=== PATIENT | female | born 1980 | race Caucasian/White ===

== ENCOUNTER 2017-01-26 19:47 | Emergency (ER) | payer BC, SELFPAY | END 2017-01-26 20:47 | disposition home or self-care (01) | PROVIDERS: Emergency Provider Nurse Practitioner Family; Family Provider Emergency Medicine; Visit Provider Nurse Practitioner Family | DX: O26.893 Other specified pregnancy related conditions, third trimester (principal); H66.002 Acute suppurative otitis media without spontaneous rupture of ear drum, left ear; Z3A.37 37 weeks gestation of pregnancy; Z88.0 Allergy status to penicillin | CPT/HCPCS: 87804; 99201 ==

== ENCOUNTER → 2017-04-01 13:09 | Outpatient (CLI) | payer BC, SELFPAY ==
[2017-04-01 13:40] LABS: Basophils % 0.2 % (0.1-2.0); Eosinophils # 0.1 K/mm3 (0.0-0.4); Eosinophils % 1.4 % (0.1-12.0); Hematocrit 34.8 % (37.0-47.0); Lymphocytes # 2.4 K/mm3 (0.7-4.5); Lymphocytes % 33.4 K/mm3 (10-50); Mean Corpuscular HGB Conc 31.5 g/dL (31.8-35.4); Mean Corpuscular Hemoglobin 26.6 pg (27.0-31.2); Mean Corpuscular Volume 84.4 fl (81-99); Mean Platelet Volume 8.5 fl (7.4-10.4); Monocytes # 0.3 K/mm3 (0.1-1.0); Monocytes % 4.1 % (1.7-9.3); Neutrophils # 4.3 K/mm3 (1.8-7.8); Neutrophils % 60.9 % (37.0-80.0); Platelet Count 323 K/mm3 (142-424); Red Blood Count 4.12 M/mm3 (4.20-5.40); White Blood Count 7.1 K/mm3 (4.8-10.8)
[2017-04-01 13:44] LABS: Alanine Aminotransferase 37 U/L (12-78); Albumin Level 3.4 gm/dL (3.4-5.0); Albumin/Globulin Ratio 0.8 (1.1-1.8); Alkaline Phosphatase 80 U/L (46-116); Anion Gap 10.8 mEq/L (5-15); Aspartate Amino Transferase 24 U/L (15-37); Bilirubin,Total 0.4 mg/dL (0.2-1.0); Blood Urea Nitrogen 12 mg/dL (7-18); Calcium 8.3 mg/dL (8.5-10.1); Carbon Dioxide 26 mmol/L (21.0-32.0); Chloride 105 mmol/L (98-107); Cholesterol 229 mg/dL (140-200); Creatinine,Serum 0.89 mg/dL (0.55-1.02); Estimated Glomerular Filt Rate 73 ml/min (>60); GFR (African American) 88 ML/MIN (>60); Globulin 4.4 gm/dl (1.3-3.2); Glucose 87 mg/dL (74-106); HDL Cholesterol 57 mg/dL (29-89); LDL Cholesterol 158 mg/dL (0-130); Potassium 3.8 mmoL/L (3.5-5.1); Sodium 138 mmol/L (136-145); Thyroid Stimulating Hormone 1.84 uIU/ml (0.358-3.740); Total Protein,Serum 7.8 gm/dL (6.4-8.2); Triglycerides 70 mg/dL (30-200); VLDL Cholesterol 14 mg/dL (0-40)
== END ==
PROVIDERS: Visit Provider Physician Assistant
DX: D64.9 Anemia, unspecified (principal); I10 Essential (primary) hypertension; E66.9 Obesity, unspecified
CPT/HCPCS: 36415; 80053; 80061; 84443; 85025

== ENCOUNTER → 2017-08-31 14:37 | Outpatient (CLI) | payer BC, SELFPAY ==
[2017-08-31 14:54] LABS: Basophils % 0.3 % (0.1-2.0); Eosinophils # 0.1 K/mm3 (0.0-0.4); Eosinophils % 2.5 % (0.1-12.0); Hematocrit 35.7 % (37.0-47.0); Hemoglobin 11.3 g/dL (12.2-16.2); Lymphocytes % 36.7 K/mm3 (10-50); Mean Corpuscular HGB Conc 31.7 g/dL (31.8-35.4); Mean Corpuscular Hemoglobin 25.2 pg (27.0-31.2); Mean Corpuscular Volume 79.5 fl (81-99); Mean Platelet Volume 8.6 fl (7.4-10.4); Monocytes # 0.2 K/mm3 (0.1-1.0); Monocytes % 3.7 % (1.7-9.3); Neutrophils # 3.1 K/mm3 (1.8-7.8); Neutrophils % 56.7 % (37.0-80.0); Platelet Count 334 K/mm3 (142-424); Red Blood Count 4.49 M/mm3 (4.20-5.40); Red Cell Distribution Width 14.1 % (11.5-17.5); White Blood Count 5.5 K/mm3 (4.8-10.8)
[2017-08-31 16:26] LABS: Alanine Aminotransferase 25 U/L (12-78); Albumin Level 3.6 gm/dL (3.4-5.0); Alkaline Phosphatase 61 U/L (46-116); Anion Gap 13.5 mEq/L (5-15); Aspartate Amino Transferase 14 U/L (15-37); Bilirubin,Total 0.3 mg/dL (0.2-1.0); Blood Urea Nitrogen 9 mg/dL (7-18); Calcium 8.5 mg/dL (8.5-10.1); Carbon Dioxide 23 mmol/L (21.0-32.0); Chloride 109 mmol/L (98-107); Chol/HDL Ratio 4.5 (1-3.5); Cholesterol 170 mg/dL (140-200); Creatinine,Serum 0.78 mg/dL (0.55-1.02); Estimated Glomerular Filt Rate 84 ml/min (>60); GFR (African American) 102 ML/MIN (>60); Globulin 3.5 gm/dl (1.3-3.2); Glucose 85 mg/dL (74-106); HDL Cholesterol 38 mg/dL (29-89); LDL Cholesterol 122 mg/dL (0-130); Potassium 4.5 mmoL/L (3.5-5.1); Sodium 141 mmol/L (136-145); T4 (Thyroxine) 6.6 ug/dl (4.7-13.3); Total Protein,Serum 7.1 gm/dL (6.4-8.2); Triglycerides 50 mg/dL (30-200); VLDL Cholesterol 10 mg/dL (0-40)
[2017-09-03 06:35] LABS: Vitamin D 25 Hydroxy 17.4 ng/mL (30.0-100.0)
== END ==
PROVIDERS: Visit Provider Nurse Practitioner Family
DX: R53.83 Other fatigue (principal)
CPT/HCPCS: 36415; 80053; 80061; 82652; 84436; 84443; 85025

== ENCOUNTER → 2017-09-06 17:49 | Outpatient (CLI) | payer BC, SELFPAY ==
[2017-09-06 20:13] LABS: Ferritin 5 ng/mL (8-388)
[2017-09-08 08:33] LABS: Iron 29 ug/dL (27-159); UIBC 379 ug/dL (131-425)
[2017-09-08 17:12] LABS: Iron Saturation 7 % (15-55)
== END ==
PROVIDERS: Visit Provider Nurse Practitioner Family
DX: D64.9 Anemia, unspecified (principal)
CPT/HCPCS: 36415; 82728; 83540; 83550

== ENCOUNTER → 2017-10-08 16:35 | Outpatient (CLI) | payer BC, SELFPAY ==
[2017-10-08 17:12] LABS: Occult Blood,Stool Positive (Negative)
== END ==
PROVIDERS: PCP Nurse Practitioner Family; Visit Provider Nurse Practitioner Family
DX: R79.0 Abnormal level of blood mineral (principal)
CPT/HCPCS: 82272; G0328

== ENCOUNTER → 2017-10-25 12:37 | Outpatient (POV) | payer BC, SELFPAY | PROVIDERS: Family Provider Emergency Medicine; PCP Nurse Practitioner Family; Visit Provider Nurse Practitioner Acute Care | DX: Z00.00 Encounter for general adult medical examination without abnormal findings (principal) ==

== ENCOUNTER 2019-05-28 00:28 | Emergency (ER) | payer BC, SELFPAY ==
[2019-05-28 00:30] VITALS: BP 143/87; PULSE 69; RESP 16; TEMP 36.7; O2SAT 97; BMI 40.2
--- NOTE | 2019-05-28 00:54 | XR_ITS ---
PROCEDURE: XR CHEST 2V Patient Age:38Y CLINICAL HISTORY: SOB on exertion past few days. Nonsmoker. COMPARISON: CXR CHEST(2 VIEWS-NOT PORTABLE) from 10/01/2013 FINDINGS: The lungs are well expanded and clear with nothing definitely acute.. PA film stable. Unremarkable. Lateral film there may be some mild atelectasis and slight crowding markings towards the posterior sulcus region. No convincing infiltrate. Cardiomediastinal silhouette and pulmonary vascularity are within normal limits. No pleural effusion. No bony abnormalities. Chest wall intact IMPRESSION: Stable chest with nothing definitely acute Dictated by: Phil Kaufman MD 05/28/2019 12:43 Electronically signed by Phil Kaufman MD in [facility] 05/28/2019 12:43
--- NOTE | 2019-05-28 00:54 | ECG_ITS ---
APPROVED REPORT Exam: Resting ECG HR:75 bpm ECG Measurements Heart Rate 75 AXES MD 124 P 0 QRSd 78 QRS 15 QT 408 T 7 QTc 455 <Conclusion> Normal sinus rhythm Normal ECG Electronically signed by : Fabio Asif, 05/29/2019 07:04:20
[2019-05-28 00:55] LABS: POC Glucose,Bedside 100 (70-110)
[2019-05-28 01:14] LABS: Basophils # 0.1 K/mm3 (0-0.2); Basophils % 0.8 % (0.1-2.0); Eosinophils # 0.2 K/mm3 (0.0-0.4); Eosinophils % 2.9 % (0.1-12.0); Hematocrit 40.1 % (37.0-47.0); Hemoglobin 12.8 g/dL (12.2-16.2); Lymphocytes # 2.8 K/mm3 (0.7-4.5); Mean Corpuscular HGB Conc 31.9 g/dL (31.8-35.4); Mean Corpuscular Hemoglobin 29.9 pg (27.0-31.2); Mean Corpuscular Volume 93.9 fl (81-99); Mean Platelet Volume 8.4 fl (7.4-10.4); Monocytes # 0.4 K/mm3 (0.1-1.0); Monocytes % 5.5 % (1.7-9.3); Neutrophils # 4.3 K/mm3 (1.8-7.8); Neutrophils % 54.8 % (37.0-80.0); Platelet Count 287 K/mm3 (142-424); Red Blood Count 4.27 M/mm3 (4.20-5.40); Red Cell Distribution Width 13.1 % (11.5-17.5); White Blood Count 7.9 K/mm3 (4.8-10.8)
[2019-05-28 01:20] LABS: Anion Gap 9.9 mEq/L (5-15); Blood Urea Nitrogen 20 mg/dl (7-17); Calcium 9.3 mg/dl (8.4-10.2); Carbon Dioxide 28 mmol/L (22.0-30.0); Chloride 103 mmol/L (98-107); Creatinine Clearance Estimated 153 mL/min (50-200); Estimated Glomerular Filt Rate 81 ml/min (>60); GFR (African American) 98 ML/MIN (>60); Glucose 92 mg/dl (74-100); Potassium 3.9 mmoL/L (3.5-5.1); Sodium 137 mmol/L (136-145)
--- NOTE | 2019-05-28 01:27 | CT_ITS ---
PROCEDURE: CT HEAD/BRAIN WO CON Patient Age:38Y CLINICAL INDICATION: tingling in head and hands Headache tingling all extremities dizziness occasional tunnel vision started yesterday. Nonsmoker. Is COMPARISON: HDWO CT HEAD W/O CONTRAST from 11/01/2013 CT HEAD/BRAIN WO CON from 11/08/2018 TECHNIQUE: No IV contrast. Axial images were obtained. All CT scans at the facility use one or more dose reduction, viz: automated exposure control, ma/kV adjustment per patient size (including targeted exams where dose is matched to indication, i.e. head), or iterative reconstruction technique. FINDINGS: No acute intracranial findings. No significant change since previous head CT studies No intracranial hemorrhage. No hydrocephalus.The ventricles and basal cisterns appear clear and satisfactory. No mass or midline shift nor mass effect. No subdural or extra-axial fluid collection is evident. Posterior fossa unremarkable. Skull intact- calvarium unremarkable appearance. Nomastoid effusions. Mastoid air cells are well developed and clear. Middle ear clear. IAC's symmetric. Nosinus air-fluid level. Visualized portions of the paranasal sinuses clear and orbits unremarkable.. IMPRESSION: No acute intracranial findings Stable CT head Dictated by: Phil Kaufman MD 05/28/2019 11:51 Electronically signed by Phil Kaufman MD in [facility] 05/28/2019 11:51
[2019-05-28 01:30] VITALS: BP 140/77; PULSE 73; RESP 16; O2SAT 98
[2019-05-28 01:32] LABS: Troponin I < 0.01 ng/ml (0.00-0.034)
[2019-05-28 02:30] VITALS: BP 137/81; PULSE 76; RESP 16; O2SAT 97
--- NOTE | 2019-05-28 02:54 | HMH.EDWEAK ---
ED Disposition Clinical Impression: Migraine variant Disposition: Home, Self-Care Condition on Discharge: Good Instructions: DI for Migraine Additional Instructions: see pcp for follow up Referrals: Mateo Pace MD [Primary Care Provider] - - Critical Care Critical Care Time: No Attestation: On 05/28/19, the high probability of a clinically significant, sudden or life threatening deterioration of the following system(s) required my full and direct attention, intervention and personal management. The time I documented below is in addition to time spent performing reported procedures but includes the following listed in this critical care notation. Medical Decision Making - Medical Records Medical records reviewed: Yes: I reviewed the patient's medical records. - Parveen Inquiry Pt receiving controlled substance: No Vital Signs: 05/28/19 00:30 05/28/19 01:30 Temperature 98.0 F Temperature Source Oral Pulse Rate [Left Radial] 69 73 Respiratory Rate 16 16 Blood Pressure [Right Arm] 143/87 H 140/77 Blood Pressure Mean [Right Arm] 105 98 Blood Pressure Source [Right Arm] Automatic Cuff Blood Pressure Position [Right Arm] Sitting 02 Sat by Pulse Oximetry 97 98 Oxygen Delivery Method Room Air Room Air - Lab Data Lab results reviewed: Yes: I reviewed the patient's lab results. Lab Results 05/28/19 00:37: POC Glucose 100 05/28/19 01:04: WBC 7.9, RBC 4.27, Hgb 12.8, Hct 40.1, MCV 93.9, MCH 29.9, MCHC 31.9, RDW 13.1, Plt Count 287, MPV 8.4, Neut % (Auto) 54.8, Lymph % (Auto) 36.0, [place] % (Auto) 5.5, Eos % (Auto) 2.9, Baso % (Auto) 0.8, Neut # (Auto) 4.3, Lymph # (Auto) 2.8, [place] # (Auto) 0.4, Eos # (Auto) 0.2, Baso # (Auto) 0.1 05/28/19 01:04: Sodium 137, Potassium 3.9, Chloride 103, Carbon Dioxide 28, Anion Gap 9.9, BUN 20 H, Creatinine 0.80, Estimated Creat Clear 153, Estimated GFR 81, Est GFR ( Amer) 98, Glucose 92, Calcium 9.3, Troponin I < 0.01 Result diagrams: 05/28/19 01:04 05/28/19 01:04 Orders (Tests/Meds): ED MEDICATIONS Generic Name Dose Route Start Last Admin Trade Name Freq PRN Reason Stop Dose Admin Sodium Chloride 1,000 mls @ 999 mls/hr 05/28/19 01:15 05/28/19 01:17 Sod Chlor 0.9% 1000ml Bag IV 05/28/19 02:15 999 mls/hr .Q1H1M OMAR Administration Discontinued Medications Generic Name Dose Route Start Last Admin Trade Name Freq PRN Reason Stop Dose Admin Ketorolac Tromethamine 30 mg 05/28/19 01:15 05/28/19 01:17 Toradol 30mg/Ml Vial IV 05/28/19 01:16 30 mg ONCE ONE Administration Ondansetron HCl 4 mg 05/28/19 01:15 05/28/19 01:17 Zofran 4mg/2ml Vial IV 05/28/19 01:16 4 mg ONCE ONE Administration ORDERS Category Date Time Status CT head/brain wo con Stat Cat Scan 05/28/19 01:27 Taken XR chest 2V Stat Exams 05/28/19 00:54 Taken Troponin I Q3H Lab 05/28/19 04:00 Ordered Troponin I Q3H Lab 05/28/19 07:00 Ordered Urinalysis and Microscopic Stat Lab 05/28/19 00:54 Ordered - Radiology Data #1 Image(s): Chest Image Reviewed: Yes I reviewed the patient's radiology image Preliminary Findings: Normal/NAD - CT Data CT Scan: Head Time Received: 03:[address] Reviewed: Yes: I have viewed the radiologist's interpretation Preliminary Findings: Normal/NAD - ECG Data Tracing #1 Normal Sinus Rhythm: Yes Ischemic changes: non-specific ST-T wave changes - KELLEY Score for Non-Stemi Age of Patient: 30-39 years old Heart Rate: 50-69 bpm Systolic Blood Pressure: 140-159 mmHg Serum Creatinine: 0.80-1.19 mg/dl CHF Killip Class: I-No CHF Other Risk Factors: None Non-Stemi Risk Score: 42 Weakness HPI - General Chief complaint: Weakness Stated complaint: Pressure forehead;arm and tingling in same Time Seen by Provider: 05/28/19 00:45 Mode of Arrival: Ambulatory Source of Information: Patient, Medical Record Limitations: No Limitations Description of Symptoms (Recalled from ER Triage Doc. by RN): pt c/
[2019-05-28 03:03] VITALS: BP 142/81; PULSE 82; RESP 16; TEMP 36.6; O2SAT 98
== END 2019-05-28 03:06 | disposition home or self-care (01) ==
PROVIDERS: Emergency Provider Emergency Medicine; PCP Family Medicine
DX: G43.809 Other migraine, not intractable, without status migrainosus (principal)
CPT/HCPCS: 70450; 71046; 80048; 82962; 84484; 85025; 93005; 96365; 96375; 99283; 99284; J2405

== ENCOUNTER 2019-09-10 17:24 | Emergency (ER) | payer BC, SELFPAY ==
[2019-09-10 17:39] VITALS: BP 163/86; PULSE 98; RESP 18; TEMP 36.7; O2SAT 100; BMI 41.8
--- NOTE | 2019-09-10 17:46 | ECG_ITS ---
APPROVED REPORT Exam: Resting ECG HR:94 bpm ECG Measurements Heart Rate 94 AXES AL 172 P 61 QRSd 74 QRS 38 QT 380 T 14 QTc 475 <Conclusion> Normal sinus rhythm Possible Left atrial enlargement NDST-T Changes Abnormal ECG Electronically signed by : Saravanan Cardozo, 09/11/2019 09:13:42
--- NOTE | 2019-09-10 17:46 | XR_ITS ---
PROCEDURE: XR CHEST 2V Patient Age:39Y CLINICAL HISTORY: Rapid Heart Rate dyspnea. Short of breath. Possible inside the attack. Nonsmoker. COMPARISON: CXR CHEST(2 VIEWS-NOT PORTABLE) from 10/01/2013 XR CHEST 2V from 05/28/2019 FINDINGS: PA and lateral chest performed today and compared to most recent CXR May 2019 The cardiomediastinal silhouette and pulmonary vascularity are within normal limits. The lungs are clear without infiltrates, suspicious nodules, or pleural effusions. No acute bony abnormalities. IMPRESSION: Stable chest. Nothing definitely acute. Dictated by: Phil Kaufman MD 09/10/2019 22:14 Electronically signed by Phil Kaufman MD in [facility] 09/10/2019 22:14
--- NOTE | 2019-09-10 17:57 | HMH.EDGENADL ---
ED Disposition Clinical Impression: Chest pain, atypical Disposition: Home, Self-Care Condition on Discharge: Good Instructions: DI for Atypical Chest Pain Referrals: Katalina Pena APRN [Primary Care Provider] - Time of Disposition: 20:20 - Critical Care Critical Care Time: No Attestation: On 09/10/19, the high probability of a clinically significant, sudden or life threatening deterioration of the following system(s) required my full and direct attention, intervention and personal management. The time I documented below is in addition to time spent performing reported procedures but includes the following listed in this critical care notation. Medical Decision Making - Medical Records Medical records reviewed: Yes: I reviewed the patient's medical records. - Parveen Inquiry Pt receiving controlled substance: No Vital Signs: 09/10/19 17:39 09/10/19 18:10 Temperature 98.0 F Temperature Source Oral Pulse Rate [Right Radial] 98 H 89 Respiratory Rate 18 Blood Pressure [Right Arm] 163/86 H 130/74 Blood Pressure Mean [Right Arm] 111 92 Blood Pressure Source [Right Arm] Automatic Cuff Automatic Cuff Blood Pressure Position [Right Arm] Sitting Sitting 02 Sat by Pulse Oximetry 100 100 Oxygen Delivery Method Room Air Room Air - Lab Data Lab Results 09/10/19 17:50: WBC 7.6, RBC 4.30, Hgb 13.7, Hct 39.5, MCV 91.9, MCH 31.8 H, MCHC 34.7, RDW 12.7, Plt Count 225, MPV 8.6, Neut % (Auto) 72.8, Lymph % (Auto) 22.3, [place] % (Auto) 3.2, Eos % (Auto) 1.3, Baso % (Auto) 0.5, Neut # (Auto) 5.6, Lymph # (Auto) 1.7, [place] # (Auto) 0.2, Eos # (Auto) 0.1, Baso # (Auto) 0.0 09/10/19 17:50: Sodium 137, Potassium 4.1, Chloride 103, Carbon Dioxide 25, Anion Gap 13.1, BUN 11, Creatinine 0.90, Estimated Creat Clear 68, Estimated GFR 70, Est GFR ( Amer) 85, Glucose 117 H, Calcium 9.1, Troponin I < 0.01 09/10/19 17:50: Free T4 1.50 09/10/19 17:50: TSH 0.29 L Result diagrams: 09/10/19 17:50 09/10/19 17:50 Orders (Tests/Meds): ORDERS Category Date Time Status Chest XR 2 view (NOT portable) [XR chest 2V] Stat Exams 09/10/19 17:46 Taken Troponin I Q3H Lab 09/10/19 19:53 Received Troponin I Q3H Lab 09/11/19 00:00 Ordered - ECG Data Tracing #1 Sinus rhythm with ventricular rate of 94 bpm. QRS 74, QTc 475. Possible left atrial enlargement. No ischemia or arrhythmia. Medical Decision Narrative: In summary this is a 39-year-old female with history of thyroid disorder and anxiety presenting to the emergency department with palpitations and chest pressure. She is conversational on arrival. Vital signs are stable. Plan to obtain CBC, CMP, chest x-ray, EKG, troponin profile, thyroid studies. Patient has had a hysterectomy, will not obtain test. EKG shows sinus rhythm at 94 bpm. No evidence of ischemia or arrhythmia. Laboratory results are generally unremarkable. Troponin is not elevated. Delta troponin shows no change. On reassessment patient says that she is feeling somewhat better. Has not had new or evolving chest pain while in the emergency department. I counseled her that we have not found one reason for her chest pain tonight. It is atypical. Could be due to anxiety. It is important that she follow-up with her primary care physician in 1 to 2 days for symptom recheck. Given return precautions. Stable for discharge. General Adult HPI - General Chief complaint: PAIN Stated complaint: panic attack Time Seen by Provider: 09/10/19 17:47 Mode of Arrival: Ambulatory Limitations: No Limitations Description of Symptoms (Recalled from ER Triage Doc. by RN): Pt reports that she was in the kitchen cooking noticed on her smart watch that her heart rate was 130. Pt reports she keeps an eye on her heart rate on her watch. Pt states she began having burning pain in chest and burning in her head. - History of Present Illness HPI narrative: 39-year-old female presenting to the emergency
[2019-09-10 18:01] LABS: Basophils % 0.5 % (0.1-2.0); Eosinophils # 0.1 K/mm3 (0.0-0.4); Eosinophils % 1.3 % (0.1-12.0); Hematocrit 39.5 % (37.0-47.0); Hemoglobin 13.7 g/dL (12.2-16.2); Lymphocytes # 1.7 K/mm3 (0.7-4.5); Lymphocytes % 22.3 % (10-50); Mean Corpuscular HGB Conc 34.7 g/dL (31.8-35.4); Mean Corpuscular Hemoglobin 31.8 pg (27.0-31.2); Mean Corpuscular Volume 91.9 fl (81-99); Mean Platelet Volume 8.6 fl (7.4-10.4); Monocytes # 0.2 K/mm3 (0.1-1.0); Monocytes % 3.2 % (1.7-9.3); Neutrophils # 5.6 K/mm3 (1.8-7.8); Neutrophils % 72.8 % (37.0-80.0); Platelet Count 225 K/mm3 (142-424); Red Cell Distribution Width 12.7 % (11.5-17.5); White Blood Count 7.6 K/mm3 (4.8-10.8)
--- NOTE | 2019-09-10 18:04 | PC.NURSE ---
pt to xray
[2019-09-10 18:09] LABS: Anion Gap 13.1 mEq/L (5-15); Blood Urea Nitrogen 11 mg/dl (7-17); Calcium 9.1 mg/dl (8.4-10.2); Carbon Dioxide 25 mmol/L (22.0-30.0); Chloride 103 mmol/L (98-107); Creatinine Clearance Estimated 68 mL/min (50-200); Estimated Glomerular Filt Rate 70 ml/min (>60); GFR (African American) 85 ML/MIN (>60); Glucose 117 mg/dl (74-100); Potassium 4.1 mmoL/L (3.5-5.1); Sodium 137 mmol/L (136-145)
[2019-09-10 18:10] VITALS: BP 130/74; PULSE 89; O2SAT 100
[2019-09-10 18:23] LABS: Troponin I < 0.01 ng/ml (0.00-0.034)
[2019-09-10 18:50] LABS: Thyroid Stimulating Hormone 0.29 uIU/mL (0.465-4.68)
[2019-09-10 20:31] LABS: Troponin I < 0.01 ng/ml (0.00-0.034)
[2019-09-10 20:43] VITALS: BP 119/63; PULSE 79; RESP 18; TEMP 36.7; O2SAT 100
[2019-09-10 20:48] VITALS: BP 138/89; PULSE 85; RESP 16; TEMP 37
== END 2019-09-10 20:49 | disposition home or self-care (01) ==
PROVIDERS: Emergency Provider Emergency Medicine; PCP Nurse Practitioner Family
DX: F41.0 Panic disorder [episodic paroxysmal anxiety] (principal); R07.89 Other chest pain; E03.9 Hypothyroidism, unspecified; D64.9 Anemia, unspecified; Z79.899 Other long term (current) drug therapy; Z87.891 Personal history of nicotine dependence; Z90.49 Acquired absence of other specified parts of digestive tract; Z90.79 Acquired absence of other genital organ(s)
CPT/HCPCS: 36415; 71046; 80048; 84439; 84443; 84484; 85025; 93005; 93041; 96374; 99283

== ENCOUNTER 2019-10-02 08:34 | Emergency (ER) | payer BC, SELFPAY ==
[2019-10-02 08:34] VITALS: BP 158/79; PULSE 84; RESP 22; TEMP 36.4; O2SAT 100; BMI 40.2
--- NOTE | 2019-10-02 08:39 | ECG_ITS ---
APPROVED REPORT Exam: Resting ECG HR:84 bpm ECG Measurements Heart Rate 84 AXES FL 128 P -14 QRSd 78 QRS 33 QT 394 T 5 QTc 465 <Conclusion> Normal sinus rhythm Nonspecific ST-T wave abnormalities Prolonged QT Abnormal ECG Electronically signed by : Saravanan Cardozo, 10/02/2019 18:40:12
--- NOTE | 2019-10-02 08:44 | XR_ITS ---
PROCEDURE: XR CHEST 2V CLINICAL HISTORY: PALPITATIONS Heart palpitations, left arm weakness COMPARISON: CR CXR CHEST(2 VIEWS-NOT PORTABLE) from 10/01/2013 CR XR CHEST 2V from 05/28/2019 CR XR CHEST 2V from 09/10/2019 FINDINGS: The cardiomediastinal silhouette and pulmonary vascularity are within normal limits. The lungs are clear without infiltrates, suspicious nodules, or pleural effusions. No acute bony abnormalities. IMPRESSION: No acute findings. Dictated by: Jb Saul MD 10/02/2019 09:17 Jb Saul MD in [facility] 10/02/2019 09:17
[2019-10-02 09:01] LABS: Basophils % 0.4 % (0.1-2.0); Eosinophils # 0.2 K/mm3 (0.0-0.4); Eosinophils % 2.3 % (0.1-12.0); Hematocrit 40.2 % (37.0-47.0); Hemoglobin 13.7 g/dL (12.2-16.2); Lymphocytes % 34.5 % (10-50); Mean Corpuscular Hemoglobin 31.4 pg (27.0-31.2); Mean Corpuscular Volume 92.2 fl (81-99); Mean Platelet Volume 8.7 fl (7.4-10.4); Monocytes # 0.5 K/mm3 (0.1-1.0); Monocytes % 5.3 % (1.7-9.3); Neutrophils % 57.4 % (37.0-80.0); Platelet Count 249 K/mm3 (142-424); Red Blood Count 4.36 M/mm3 (4.20-5.40); Red Cell Distribution Width 12.6 % (11.5-17.5); White Blood Count 8.7 K/mm3 (4.8-10.8)
[2019-10-02 09:04] VITALS: BP 126/76; PULSE 73; RESP 18; O2SAT 100
[2019-10-02 09:07] LABS: Chloride 105 mmol/L (98-107)
[2019-10-02 09:08] LABS: Potassium 3.9 mmoL/L (3.5-5.1); Sodium 140 mmol/L (136-145)
[2019-10-02 09:10] LABS: Alanine Aminotransferase 26 U/L (12-78); Albumin Level 4.4 g/dl (3.5-5.0); Albumin/Globulin Ratio 1.3 (1.1-1.8); Alkaline Phosphatase 54 U/L (38-126); Anion Gap 12.9 mEq/L (5-15); Aspartate Amino Transferase 28 U/L (14-36); Bilirubin,Total 0.2 mg/dl (0.2-1.3); Blood Urea Nitrogen 16 mg/dl (7-17); Carbon Dioxide 26 mmol/L (22.0-30.0); Creatinine Clearance Estimated 173 mL/min (50-200); Estimated Glomerular Filt Rate 94 ml/min (>60); GFR (African American) 114 ML/MIN (>60); Globulin 3.5 g/dL (1.3-3.2); Total Protein,Serum 7.9 g/dl (6.3-8.2)
[2019-10-02 09:11] LABS: Calcium 8.9 mg/dl (8.4-10.2); Glucose 87 mg/dl (74-100)
--- NOTE | 2019-10-02 09:12 | HMH.EDGENADL ---
ED Disposition Clinical Impression: Palpitations, Hyperthyroidism, Hormone disturbance Disposition: Home, Self-Care Condition on Discharge: Good Instructions: DI for Hyperthyroidism, DI for Palpitations Referrals: Katalina Pena APRN [Primary Care Provider] - - Critical Care Critical Care Time: No Attestation: On 10/02/19, the high probability of a clinically significant, sudden or life threatening deterioration of the following system(s) required my full and direct attention, intervention and personal management. The time I documented below is in addition to time spent performing reported procedures but includes the following listed in this critical care notation. Medical Decision Making - Medical Records Medical records reviewed: Yes: I reviewed the patient's medical records. - Parveen Inquiry Pt receiving controlled substance: No Vital Signs: 10/02/19 08:34 10/02/19 09:04 Temperature 97.6 F Temperature Source Oral Pulse Rate [Right] 84 73 Respiratory Rate 22 18 Blood Pressure [Right Arm] 158/79 H 126/76 Blood Pressure Mean [Right Arm] 105 92 Blood Pressure Source [Right Arm] Automatic Cuff Blood Pressure Position [Right Arm] Sitting 02 Sat by Pulse Oximetry 100 100 Oxygen Delivery Method Room Air - Lab Data Lab Results 10/02/19 08:50: WBC 8.7, RBC 4.36, Hgb 13.7, Hct 40.2, MCV 92.2, MCH 31.4 H, MCHC 34.0, RDW 12.6, Plt Count 249, MPV 8.7, Neut % (Auto) 57.4, Lymph % (Auto) 34.5, [place] % (Auto) 5.3, Eos % (Auto) 2.3, Baso % (Auto) 0.4, Neut # (Auto) 5.0, Lymph # (Auto) 3.0, [place] # (Auto) 0.5, Eos # (Auto) 0.2, Baso # (Auto) 0.0 10/02/19 08:50: Sodium 140, Potassium 3.9, Chloride 105, Carbon Dioxide 26, Anion Gap 12.9, BUN 16, Creatinine 0.70, Estimated Creat Clear 173, Estimated GFR 94, Est GFR ( Amer) 114, Glucose 87, Calcium 8.9, Total Bilirubin 0.2, AST 28, ALT 26, Alkaline Phosphatase 54, Troponin I < 0.01, Total Protein 7.9, Albumin 4.4, Globulin 3.5 H, Albumin/Globulin Ratio 1.3, TSH 0.14 L, Thyroxine (T4) 11.8 H Result diagrams: 10/02/19 08:50 10/02/19 08:50 Orders (Tests/Meds): ORDERS Category Date Time Status Troponin I Q3H Lab 10/02/19 11:45 Ordered Troponin I Q3H Lab 10/02/19 14:45 Ordered ECG Request by /Pedro Luis Stat Y 10/02/19 08:44 Ordered - ECG Data Tracing #1 Sinus rhythm with ventricular rate of 84 bpm. QRS 78, QTc 465. - KELLEY Score for Non-Stemi Age of Patient: 30-39 years old Heart Rate: 70-89 bpm Systolic Blood Pressure: 140-159 mmHg Serum Creatinine: 0.40-0.79 mg/dl CHF Killip Class: I-No CHF Other Risk Factors: None Non-Stemi Risk Score: 45 Medical Decision Narrative: In summary this is a 39-year-old female with history of thyroid disorder and exogenous hormone use presenting to the emergency department with palpitations. She is clinically stable on arrival. Initial heart rate is 84 bpm and regular. Concern for thyroid dysfunction. Also strong concern for hormone replacement therapy side effects. The medication she is taking are not approved by the FDA. I counseled her extensively on risks. Will obtain CBC, CMP, thyroid studies, EKG, troponin profile. Initial EKG is nonischemic. No cardiac arrhythmias. Laboratory results show slight abnormality in thyroid studies, TSH low and T4 high. Hyperthyroid without evidence of thyroid storm. No anemia or electrolyte abnormality. Troponin not elevated. Delta shows no change. Patient counseled that her symptoms are most likely due to hyperthyroidism. Concern for supplements. Recommended she follow-up with her primary care physician and only take medications at the instruction of a physician. General Adult HPI - General Chief complaint: Arrhythmia/Palpitations Stated complaint: fluttery heart, cold, left arm numb Time Seen by Provider: 10/02/19 10:12 Mode of Arrival: Ambulatory Limitations: No Limitations Description of Symptoms (Recalled from ER Triage Doc. by RN): PT STATES FOR THE
[2019-10-02 09:23] LABS: Troponin I < 0.01 ng/ml (0.00-0.034)
[2019-10-02 09:28] LABS: T4 (Thyroxine) 11.8 ug/dl (5.53-11.0)
[2019-10-02 09:30] VITALS: BP 129/78; PULSE 74; RESP 16; O2SAT 99
[2019-10-02 09:42] LABS: Thyroid Stimulating Hormone 0.14 uIU/mL (0.465-4.68)
[2019-10-02 10:00] VITALS: BP 121/79; PULSE 72; RESP 13; O2SAT 99
--- NOTE | 2019-10-02 11:25 | PC.NURSE ---
CALLED LAB FOR UPDATE ON THE 2ND TROPONIN STATED THEY WOULD RESULT IT SHORTLY
[2019-10-02 11:54] LABS: Troponin I < 0.01 ng/ml (0.00-0.034)
[2019-10-02 12:04] VITALS: BP 141/65; PULSE 79; RESP 17; TEMP 36.7; O2SAT 98
== END 2019-10-02 12:11 | disposition home or self-care (01) ==
PROVIDERS: Emergency Provider Emergency Medicine; PCP Nurse Practitioner Family
DX: R00.2 Palpitations (principal); E05.90 Thyrotoxicosis, unspecified without thyrotoxic crisis or storm; E34.9 Endocrine disorder, unspecified; F41.9 Anxiety disorder, unspecified; Z88.0 Allergy status to penicillin; Z87.891 Personal history of nicotine dependence; Z90.49 Acquired absence of other specified parts of digestive tract; Z90.710 Acquired absence of both cervix and uterus
CPT/HCPCS: 71046; 80053; 84436; 84443; 84484; 85025; 93005; 99284

== ENCOUNTER → 2019-10-12 09:58 | Outpatient (CLI) | payer BC, SELFPAY ==
--- NOTE | 2019-10-12 10:05 | US_ITS ---
PROCEDURE: US THYROID CLINICAL INDICATION: HYPERTHYROIDISM COMPARISON: No exams were available for comparison FINDINGS: Right lobe: 1.7cm x 3.9cm x 1.2cm Left lobe: 1.3cm x 3.9cm x 1.1cm Isthmus: Unremarkable Additional findings: No discrete nodules evident. IMPRESSION: Negative thyroid ultrasound Dictated by: Jb Saul MD 10/13/2019 08:52 Jb Saul MD in [facility] 10/13/2019 08:52
== END ==
LOC: RAD 09:58
PROVIDERS: PCP Nurse Practitioner Family; Visit Provider Nurse Practitioner Family
DX: E05.90 Thyrotoxicosis, unspecified without thyrotoxic crisis or storm (principal)
CPT/HCPCS: 76536

== ENCOUNTER → 2020-02-20 14:45 | Outpatient (CLI) | payer BC, SELFPAY ==
--- NOTE | 2020-02-20 14:53 | XR_ITS ---
PROCEDURE: XR FOOT LT MIN 3V CLINICAL INDICATION: POLYARTHRALGIA Pain COMPARISON: No exams were available for comparison FINDINGS: No fracture or dislocation. No lytic or blastic change. There is normal mineralization. The joint spaces are well-preserved. No significant degenerative/arthritic changes. No erosive changes evident. Other findings:None. IMPRESSION: No acute findings. Dictated by: Jb Saul MD 02/20/2020 18:06 Jb Saul MD in [facility] 02/20/2020 18:06
--- NOTE | 2020-02-20 14:53 | XR_ITS ---
PROCEDURE: XR ANKLE LT MIN 3V CLINICAL INDICATION: POLYARTHRALGIA Pain COMPARISON: DX XR ANKLE RT MIN 3V from 02/20/2020 FINDINGS: No fracture or dislocation. No lytic or blastic change. There is normal mineralization. The joint spaces are well-preserved. No significant degenerative/arthritic changes. No erosive changes evident. Other findings:There is an area of lucency noted over the talar dome medially. Possibly due to an artifact. This is less apparent on the AP view compared to the mortise view. IMPRESSION: Lucency of the medial aspect of the talar dome. Possibly due to artifact.. An area of osteochondral defect is included in the differential diagnosis. CT or MRI may provide further evaluate clinically desired. Dictated by: Jb Saul MD 02/20/2020 18:12 Jb Saul MD in [facility] 02/20/2020 18:12
--- NOTE | 2020-02-20 14:53 | XR_ITS ---
PROCEDURE: XR SHOULDER RT MIN 2V CLINICAL INDICATION: POLYARTHRALGIA Pain COMPARISON: No exams were available for comparison FINDINGS: No fracture or dislocation. No lytic or blastic change. There is normal mineralization. The joint spaces are well-preserved. No significant degenerative/arthritic changes. No erosive changes evident. Other findings:None. IMPRESSION: Negative shoulder Dictated by: Jb Saul MD 02/20/2020 18:10 Jb Saul MD in [facility] 02/20/2020 18:10
--- NOTE | 2020-02-20 14:53 | XR_ITS ---
PROCEDURE: XR ANKLE RT MIN 3V CLINICAL INDICATION: POLYARTHRALGIA Pain COMPARISON: No exams were available for comparison FINDINGS: No fracture or dislocation. No lytic or blastic change. There is normal mineralization. The joint spaces are well-preserved. No significant degenerative/arthritic changes. No erosive changes evident. Other findings:None. IMPRESSION: No acute findings. Dictated by: Jb Saul MD 02/20/2020 18:13 Jb Saul MD in [facility] 02/20/2020 18:13
--- NOTE | 2020-02-20 14:53 | XR_ITS ---
PROCEDURE: XR CERVICAL SPINE 5V CLINICAL INDICATION: POLYARTHRALGIA Neck pain COMPARISON: No exams were available for comparison FINDINGS: No fracture or dislocation. No lytic or blastic change. There is normal mineralization. There is slight reversal of the cervical lordosis which may be due to patient positioning or muscle spasm no prevertebral soft tissue swelling. The neural foramina are widely patent. The disc spaces are well preserved. No significant degenerative change Other findings:None. IMPRESSION: Reversal lordosis otherwise negative Dictated by: Jb Saul MD 02/20/2020 18:05 Jb Saul MD in [facility] 02/20/2020 18:05
--- NOTE | 2020-02-20 14:53 | XR_ITS ---
PROCEDURE: XR SHOULDER LT MIN 2V CLINICAL INDICATION: POLYARTHRALGIA COMPARISON: No exams were available for comparison FINDINGS: No fracture or dislocation. No lytic or blastic change. There is normal mineralization. The joint spaces are well-preserved. No significant degenerative/arthritic changes. No erosive changes evident. Other findings:None. IMPRESSION: Negative left shoulder Dictated by: Jb Saul MD 02/20/2020 18:09 Jb Saul MD in [facility] 02/20/2020 18:09
--- NOTE | 2020-02-20 14:53 | XR_ITS ---
PROCEDURE: XR FOOT RT MIN 3V CLINICAL INDICATION: POLYARTHRALGIA Pain COMPARISON: No exams were available for comparison FINDINGS: No fracture or dislocation. No lytic or blastic change. There is normal mineralization. The joint spaces are well-preserved. No significant degenerative/arthritic changes. No erosive changes evident. Other findings:None. IMPRESSION: Negative right Dictated by: Jb Saul MD 02/20/2020 18:10 Jb Saul MD in [facility] 02/20/2020 18:10
== END ==
LOC: RAD 14:47
PROVIDERS: PCP Nurse Practitioner Family; Visit Provider Nurse Practitioner Family
DX: M25.50 Pain in unspecified joint (principal)
CPT/HCPCS: 72050; 73030; 73610; 73630

== ENCOUNTER → 2020-10-24 16:53 | Outpatient (CLI) | payer BC, SELFPAY ==
[2020-10-24 17:38] LABS: Basophils # 0.1 K/mm3 (0-0.2); Basophils % 0.8 % (0.1-2.0); Eosinophils # 0.2 K/mm3 (0.0-0.4); Eosinophils % 2.5 % (0.1-12.0); Hematocrit 39.3 % (37.0-47.0); Hemoglobin 13.4 g/dL (12.2-16.2); Lymphocytes # 2.9 K/mm3 (0.7-4.5); Lymphocytes % 36.1 % (10-50); Mean Corpuscular HGB Conc 34.2 g/dL (31.8-35.4); Mean Corpuscular Hemoglobin 32.2 pg (27.0-31.2); Mean Corpuscular Volume 94.2 fl (81-99); Monocytes # 0.4 K/mm3 (0.1-1.0); Monocytes % 4.8 % (1.7-9.3); Neutrophils # 4.5 K/mm3 (1.8-7.8); Neutrophils % 55.8 % (37.0-80.0); Platelet Count 310 K/mm3 (142-424); Red Blood Count 4.17 M/mm3 (4.20-5.40); Red Cell Distribution Width 12.5 % (11.5-17.5); White Blood Count 8.1 K/mm3 (4.8-10.8)
[2020-10-24 20:45] LABS: Strep Scrn Group A (Rapid) Negative (Negative)
== END ==
PROVIDERS: PCP Physician Assistant; Visit Provider Physician Assistant
DX: Z20.822 Contact with and (suspected) exposure to COVID-19 (principal); J02.9 Acute pharyngitis, unspecified
CPT/HCPCS: 36415; 85025; 87430; C9803; U0003; U0005

== ENCOUNTER 2020-10-26 10:53 | Emergency (ER) | payer BC, SELFPAY ==
[2020-10-26 10:56] VITALS: BP 147/89; PULSE 88; RESP 22; TEMP 37; O2SAT 96; BMI 49.4
[2020-10-26 11:41] LABS: UTC Strep Screen (Rapid) Negative (Negative)
[2020-10-26 11:44] LABS: Adenovirus,PCR Not Detected (NotDetected); Coronavirus 229E Not Detected (NotDetected); Coronavirus NL63 Not Detected (NotDetected); Coronavirus OC43 Not Detected (NotDetected); Coronovirus HKU1,PCR Not Detected (NotDetected); Human Metapneumovirus Not Detected (NotDetected); Influenza A, PCR Not Detected (NotDetected); Rhinovirus/Enterovirus Not Detected (NotDetected)
[2020-10-26 11:46] LABS: Bordetella Pertussis Not Detected (NotDetected); Chlamydophila Pneumoniae, PCR Not Detected (NotDetected); Coronavirus 19, PCR Not Detected (NotDetected); Influenza AH3,PCR Not Detected (NotDetected); Influenza B, PCR Not Detected (NotDetected); Mycoplasma Pneumoniae, PCR Not Detected (NotDetected); Parainfluenza 1, PCR Not Detected (NotDetected); Parainfluenza 2, PCR Not Detected (NotDetected); Parainfluenza 3, PCR Not Detected (NotDetected); Parainfluenza 4, PCR Not Detected (NotDetected)
--- NOTE | 2020-10-26 11:56 | HMH.EDUTC ---
[place] Disposition Clinical Impression: Viral syndrome, Exposure to COVID-19 virus Disposition: Home, Self-Care Condition on Discharge: Good Instructions: DI for COVID-19 (Suspected or Confirmed ), Preventing the Spread of Coronavirus Discharge Instructions Additional Instructions: Drink plenty of fluids. Take tylenol or ibuprofen for pain or fever. Take the medications as directed. Follow up with your regular doctor. GO TO THE ER FOR ANY WORSENING SYMPTOMS Quarantine until you know the results of your covid-19 test. If it is positive, the health department should call you and give you further instructions about your length of Quarantine and other things. Notify your school or workplace of your results and follow their instructions regarding return to work/school. Prescriptions: Brompheniramine/Pseudoephed/Dm [Bromfed Dm Cough Syrup] 5 ml PO Q6HP PRN #240 ml PRN Reason: Cough Transmission Status: Received by [facility] Ondansetron [Zofran 4mg ODT] 4 mg PO DAILYP PRN #12 tab PRN Reason: Nausea Transmission Status: Received by [facility] Referrals: Monroe Mondragon MD [Primary Care Provider] - Forms: Work/School Release Time of Disposition: 12:26 Medical Decision Making - Medical Records Medical records reviewed: No: I reviewed the patient's medical records. - Parveen Inquiry Pt receiving controlled substance: No Vital Signs: 10/26/20 10:56 10/26/20 13:08 Temperature 98.6 F 98.6 F Temperature Source Oral Oral Pulse Rate 88 Pulse Rate [Apical] 88 Respiratory Rate 22 22 Blood Pressure 147/89 H Blood Pressure [Right Arm] 147/89 H Blood Pressure Mean [Right Arm] 108 Blood Pressure Source Automatic Cuff Blood Pressure Source [Right Arm] Automatic Cuff Blood Pressure Position Sitting Blood Pressure Position [Right Arm] Sitting 02 Sat by Pulse Oximetry 96 Oxygen Delivery Method Room Air Room Air - Lab Data Lab Results 10/26/20 11:20: Chlamy pneumoniae PCR Not detected, Adenovirus (PCR) Not detected, B. pertussis DNA (PCR) Not detected, Coronavirus OC43 (PCR) Not detected, Coronavirus HKU1 (PCR) Not detected, Coronavirus 229E (PCR) Not detected, SARS-CoV-2 (PCR) Not detected, Coronavirus NL63 (PCR) Not detected, Human Metapneumovir PCR Not detected, Influenza A (H1) PCR Not detected, Influ A (H1N1/09) PCR Not detected, Influenza A (H3) PCR Not detected, Influenza Type A (PCR) Not detected, Influenza Type B (PCR) Not detected, M. pneumoniae (PCR) Not detected, Parainfluenza 1 (PCR) Not detected, Parainfluenza 2 (PCR) Not detected, Parainfluenza 3 (PCR) Not detected, Parainfluenza 4 (PCR) Not detected, RSV (PCR) Detected A, Entero/Rhino (PCR) Not detected 10/26/20 11:31: Strep Scn Rapid Clinic Negative Orders (Tests/Meds): ORDERS Category Date Time Status Strep Screen Confirmation Stat Micro 10/26/20 11:31 Received [facility] HPI - General Stated complaint: covid sym - s thr, cough, rn, sob, Time Seen by Provider: 10/26/20 11:56 Mode of Arrival: Ambulatory Source of Information: Patient Limitations: No Limitations Description of Symptoms (Recalled from Triage Doc. by RN): sore throat, trouble breathing, runny nose, cough HEENT Symptoms (Recalled from RN notes): Yes Resp Symptoms (Recalled from RN notes): Yes Skin Symptoms (Recalled from RN notes): No MS Symptoms (Recalled from RN notes): No Functional Status (Recalled from RN notes): na - History of Present Illness Provider Complaint: She states that she has felt bad for the past 4 days. She was here 3 days ago and tested negative for covid-19 and strep. She states that since then she has felt worse. She denies chest pain and shortness of breath. She has not been vaccinated against covid-19. - Related Data Home Medications Medication Instructions Recorded Confirmed allopurinol 100 mg tablet 100 mg PO tab 03/04/20 03/04/20 Previous Rx's Medication Instructions Recorded dic
[2020-10-26 13:08] VITALS: BP 147/89; PULSE 88; RESP 22; TEMP 37; O2SAT 96
[2020-10-26 14:22] LABS: Influenza AH1, 2009 Not Detected (NotDetected); Influenza AH1, PCR Not Detected (NotDetected); Respiratory Syncytial Virus Detected (NotDetected)
== END 2020-10-26 13:10 | disposition home or self-care (01) ==
PROVIDERS: Emergency Provider Nurse Practitioner Family; PCP Family Medicine
DX: B34.9 Viral infection, unspecified (principal); Z20.822 Contact with and (suspected) exposure to COVID-19
CPT/HCPCS: 87581; 87632; 87798; 87880; 99202; C9803; G0463; U0003; U0005

== ENCOUNTER → 2020-11-14 18:41 | Outpatient (CLI) | payer BC, SELFPAY ==
[2020-11-14 19:15] LABS: Adenovirus,PCR Not Detected (NotDetected); Bordetella Pertussis Not Detected (NotDetected); Chlamydophila Pneumoniae, PCR Not Detected (NotDetected); Coronavirus 19, PCR Not Detected (NotDetected); Coronavirus 229E Not Detected (NotDetected); Coronavirus NL63 Not Detected (NotDetected); Coronavirus OC43 Not Detected (NotDetected); Coronovirus HKU1,PCR Not Detected (NotDetected); Human Metapneumovirus Not Detected (NotDetected); Influenza A, PCR Not Detected (NotDetected); Influenza AH1, 2009 Not Detected (NotDetected); Influenza AH1, PCR Not Detected (NotDetected); Influenza AH3,PCR Not Detected (NotDetected); Influenza B, PCR Not Detected (NotDetected); Mycoplasma Pneumoniae, PCR Not Detected (NotDetected); Parainfluenza 1, PCR Not Detected (NotDetected); Parainfluenza 2, PCR Not Detected (NotDetected); Parainfluenza 3, PCR Not Detected (NotDetected); Parainfluenza 4, PCR Not Detected (NotDetected); Respiratory Syncytial Virus Not Detected (NotDetected); Rhinovirus/Enterovirus Not Detected (NotDetected)
[2020-11-14 19:21] LABS: Basophils # 0.1 K/mm3 (0-0.2); Basophils % 1.2 % (0.1-2.0); Eosinophils # 0.2 K/mm3 (0.0-0.4); Eosinophils % 2.7 % (0.1-12.0); Hematocrit 40.1 % (37.0-47.0); Hemoglobin 13.1 g/dL (12.2-16.2); Lymphocytes # 3.3 K/mm3 (0.7-4.5); Lymphocytes % 40.4 % (10-50); Mean Corpuscular HGB Conc 32.6 g/dL (31.8-35.4); Mean Corpuscular Hemoglobin 30.9 pg (27.0-31.2); Mean Corpuscular Volume 94.8 fl (81-99); Mean Platelet Volume 9.2 fl (7.4-10.4); Monocytes # 0.4 K/mm3 (0.1-1.0); Monocytes % 5.1 % (1.7-9.3); Neutrophils # 4.1 K/mm3 (1.8-7.8); Neutrophils % 50.5 % (37.0-80.0); Platelet Count 312 K/mm3 (142-424); Red Blood Count 4.23 M/mm3 (4.20-5.40); Red Cell Distribution Width 13.7 % (11.5-17.5); White Blood Count 8.1 K/mm3 (4.8-10.8)
== END ==
LOC: COVID.OUT 18:43
PROVIDERS: PCP Physician Assistant; Visit Provider Physician Assistant
DX: Z20.822 Contact with and (suspected) exposure to COVID-19 (principal)
CPT/HCPCS: 36415; 85025; 87581; 87632; 87798; C9803; U0003; U0005

== ENCOUNTER 2020-12-29 19:54 | Emergency (ER) | payer BC, SELFPAY ==
[2020-12-29 20:56] VITALS: BP 151/85; PULSE 78; RESP 22; TEMP 36.7; O2SAT 100; BMI 46.7
--- NOTE | 2020-12-29 21:01 | XR_ITS ---
PROCEDURE INFORMATION: Exam: XR Chest Exam date and time: 12/29/2020 9:01 PM Age: 40 years old Clinical indication: Shortness of breath; Additional info: SOA TECHNIQUE: Imaging protocol: XR of the chest. Views: 2 views. COMPARISON: CR XR CHEST 2V 10/02/2019 8:48 AM FINDINGS: Lungs: Unremarkable. No consolidation. Pleural spaces: Unremarkable. No pleural effusion. No pneumothorax. Heart/Mediastinum: Unremarkable. No cardiomegaly. Bones/joints: Unremarkable. IMPRESSION: No acute findings.
[2020-12-29 21:20] LABS: Basophils # 0.1 K/mm3 (0-0.2); Basophils % 1.1 % (0.1-2.0); Eosinophils # 0.2 K/mm3 (0.0-0.4); Eosinophils % 2.6 % (0.1-12.0); Hematocrit 41.3 % (37.0-47.0); Hemoglobin 13.9 g/dL (12.2-16.2); Lymphocytes # 1.9 K/mm3 (0.7-4.5); Lymphocytes % 28.1 % (10-50); Mean Corpuscular HGB Conc 33.7 g/dL (31.8-35.4); Mean Corpuscular Hemoglobin 30.7 pg (27.0-31.2); Mean Corpuscular Volume 91.1 fl (81-99); Monocytes # 0.3 K/mm3 (0.1-1.0); Monocytes % 4.3 % (1.7-9.3); Neutrophils # 4.4 K/mm3 (1.8-7.8); Platelet Count 326 K/mm3 (142-424); Red Blood Count 4.53 M/mm3 (4.20-5.40); White Blood Count 6.9 K/mm3 (4.8-10.8)
[2020-12-29 21:26] LABS: Alanine Aminotransferase 21 U/L (12-78); Albumin Level 4.4 g/dl (3.5-5.0); Albumin/Globulin Ratio 1.3 (1.1-1.8); Alkaline Phosphatase 69 U/L (38-126); Anion Gap 9.9 mEq/L (5-15); Aspartate Amino Transferase 30 U/L (14-36); Bilirubin,Total 0.4 mg/dl (0.2-1.3); Blood Urea Nitrogen 14 mg/dl (7-17); Calcium 9.3 mg/dl (8.4-10.2); Carbon Dioxide 28 mmol/L (22.0-30.0); Chloride 105 mmol/L (98-107); Creatinine Clearance Estimated 86 mL/min (50-200); Estimated Glomerular Filt Rate 94 ml/min (>60); GFR (African American) 113 ML/MIN (>60); Globulin 3.4 g/dL (1.3-3.2); Glucose 98 mg/dl (74-100); Potassium 3.9 mmoL/L (3.5-5.1); Sodium 139 mmol/L (136-145); Total Protein,Serum 7.8 g/dl (6.3-8.2)
--- NOTE | 2020-12-29 21:26 | HMH.EDHA ---
[place] Disposition Clinical Impression: Headache Qualifiers: Headache type: unspecified Headache chronicity pattern: acute headache Intractability: not intractable Qualified Code(s): R51.9 - Headache, unspecified Disposition: Home, Self-Care Condition on Discharge: Good Instructions: DI for Headache Additional Instructions: call pcp for follow up Referrals: Katalina Pena APRN [Primary Care Provider] - - Critical Care Critical Care Time: No Attestation: On 12/29/20, the high probability of a clinically significant, sudden or life threatening deterioration of the following system(s) required my full and direct attention, intervention and personal management. The time I documented below is in addition to time spent performing reported procedures but includes the following listed in this critical care notation. Medical Decision Making - Medical Records Medical records reviewed: Yes: I reviewed the patient's medical records. - Parveen Inquiry Pt receiving controlled substance: No Vital Signs: 12/29/20 20:56 Temperature 98.0 F Temperature Source Oral Pulse Rate [Right Brachial] 78 Respiratory Rate 22 Blood Pressure [Left Arm] 151/85 H Blood Pressure Mean [Left Arm] 107 Blood Pressure Source [Left Arm] Automatic Cuff Blood Pressure Position [Left Arm] Sitting 02 Sat by Pulse Oximetry 100 Oxygen Delivery Method Room Air - Lab Data Lab results reviewed: Yes: I reviewed the patient's lab results. Lab Results 12/29/20 21:12: WBC 6.9, RBC 4.53, Hgb 13.9, Hct 41.3, MCV 91.1, MCH 30.7, MCHC 33.7, RDW 13.0, Plt Count 326, MPV 9.0, Neut % (Auto) 64.0, Lymph % (Auto) 28.1, [place] % (Auto) 4.3, Eos % (Auto) 2.6, Baso % (Auto) 1.1, Neut # (Auto) 4.4, Lymph # (Auto) 1.9, [place] # (Auto) 0.3, Eos # (Auto) 0.2, Baso # (Auto) 0.1, ESR 42 H 12/29/20 21:12: Sodium 139, Potassium 3.9, Chloride 105, Carbon Dioxide 28, Anion Gap 9.9, BUN 14, Creatinine 0.70, Estimated Creat Clear 86, Estimated GFR 94, Est GFR ( Amer) 113, Glucose 98, Calcium 9.3, Total Bilirubin 0.4, AST 30, ALT 21, Alkaline Phosphatase 69, C-Reactive Protein 17.7 H, Total Protein 7.8, Albumin 4.4, Globulin 3.4 H, Albumin/Globulin Ratio 1.3 12/29/20 21:12: SARS-CoV-2 (PCR) Not detected, Influenza A Untype (PCR) Not detected, Influenza Type B (PCR) Not detected Result diagrams: 12/29/20 21:12 12/29/20 21:12 Orders (Tests/Meds): ED MEDICATIONS Generic Name Dose Route Start Last Admin Trade Name Freq PRN Reason Stop Dose Admin Sodium Chloride 1,000 mls @ 999 mls/hr 12/29/20 21:30 12/29/20 21:25 Sod Chlor 0.9% 1000ml Bag IV 12/29/20 22:30 999 mls/hr .Q1H1M OMAR Administration Discontinued Medications Generic Name Dose Route Start Last Admin Trade Name Freq PRN Reason Stop Dose Admin Ketorolac Tromethamine 30 mg 12/29/20 21:17 12/29/20 21:25 Ketorolac 30mg/Ml Vial IV 12/29/20 21:18 30 mg ONCE ONE Administration Methylprednisolone Sodium Succinate 125 mg 12/29/20 22:47 Methylprednisolone Sod Succ 125mg Vial IV 12/29/20 22:48 ONCE ONE Ondansetron HCl 4 mg 12/29/20 21:17 12/29/20 21:25 Ondansetron 4mg/2ml Vial IV 12/29/20 21:18 4 mg ONCE ONE Administration - Radiology Data #1 Image(s): Chest Image Reviewed: Yes I have reviewed radiologist's interpretation Preliminary Findings: Normal/NAD Medical Decision Narrative: pt with frontal campo w/o fever/rash or trauma - Headache HPI - General Chief Complaint: Headache Stated Complaint: CAMPO,shaking Time Seen by Provider: 12/29/20 21:05 Mode of Arrival: Family Vehicle Source of Information: Patient, Medical Record Limitations: No Limitations Description of Symptoms (Recalled from ER Triage Doc. by RN): pt reports waking up for work with sinus pressure and headache and overall sensation of not feeling well ; identifies having shakiness in both hands, nausea. 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 - History of Prese
[2020-12-29 21:32] LABS: C-Reactive Protein 17.7 mg/L (0-4)
[2020-12-29 21:46] LABS: Erythrocyte Sedimentation Rate 42 mm/hr (0-20)
[2020-12-29 21:51] LABS: Coronavirus 19, PCR Not Detected (NotDetected); Influenza A, PCR Not Detected (NotDetected); Influenza B, PCR Not Detected (NotDetected)
[2020-12-29 22:52] VITALS: BP 151/85; PULSE 88; RESP 16; TEMP 37.1; O2SAT 98
== END 2020-12-29 22:59 | disposition home or self-care (01) ==
PROVIDERS: Emergency Provider Emergency Medicine; PCP Nurse Practitioner Family
DX: R51.9 Headache, unspecified (principal); R11.0 Nausea; Z20.822 Contact with and (suspected) exposure to COVID-19; Z87.891 Personal history of nicotine dependence
CPT/HCPCS: 71046; 80053; 85025; 85651; 86140; 96365; 96375; 99283; C9803; J2405; U0003; U0005

== ENCOUNTER → 2021-02-27 11:31 | Outpatient (CLI) | payer BC, SELFPAY ==
--- NOTE | 2021-02-27 11:35 | CA_ITS ---
FINAL REPORT TECHNIQUE: Color Doppler, duplex Doppler and compression sonography of the right lower extremity venous system was performed. CLINICAL HISTORY: Rt calf pain FINDINGS: There is no evidence of deep venous thrombosis from the level of the groin to the calf. The veins are patent and compressible. IMPRESSION: No evidence of deep venous thrombosis right lower extremity. Reviewed, Interpreted and Dictated by Mychal Vega III, MD Transcribed by Lupe Jack Authenticated by Mychal Vega III, MD on 02/27/2021 12:16:18 PM [facility]
== END ==
LOC: RT 11:33
PROVIDERS: PCP Physician Assistant; Visit Provider Physician Assistant
DX: R60.0 Localized edema (principal)
CPT/HCPCS: 93971

== ENCOUNTER 2021-03-18 18:52 | Emergency (ER) | payer BC, SELFPAY ==
[2021-03-18 20:08] VITALS: BP 145/85; PULSE 68; RESP 18; TEMP 36.6; O2SAT 97; BMI 47.3
--- NOTE | 2021-03-18 20:21 | HMH.EDUTC ---
[facility] [place] Disposition Clinical Impression: Exposure to COVID-19 virus, Viral syndrome Sinusitis Qualifiers: Sinusitis location: unspecified location Chronicity: acute Recurrence: non-recurrent Qualified Code(s): J01.90 - Acute sinusitis, unspecified Disposition: Home, Self-Care Condition on Discharge: Good Instructions: DI for Sinusitis, DI for COVID-19 (Suspected or Confirmed ), Preventing the Spread of Coronavirus Discharge Instructions Additional Instructions: Drink plenty of fluids. Take tylenol or ibuprofen for pain or fever. Take the medications as directed. Follow up with your regular doctor. GO TO THE ER FOR ANY WORSENING SYMPTOMS Quarantine until you know the results of your covid-19 test. Notify your school or workplace of your results and follow their instructions regarding return to work/school. Prescriptions: Benzonatate [Benzonatate 100mg cap] 100 mg PO TIDP PRN #30 cap PRN Reason: Cough Transmission Status: Received by [facility] methylPREDNISolone [Medrol] 4 mg PO DIRECTED 6 Days #21 packet Transmission Status: Received by [facility] guaiFENesin [Mucinex 600mg tablet] 1 - 2 tab PO BIDP PRN #30 tab PRN Reason: Congestion Transmission Status: Received by [facility] Azithromycin [Z-José 250mg Tab*] 250 mg PO UD DOSE PK #6 tab Transmission Status: Received by [facility] Referrals: Ayla Guillen PA [Primary Care Provider] - Time of Disposition: 20:38 Medical Decision Making - Medical Records Medical records reviewed: No: I reviewed the patient's medical records. - Parveen Inquiry Pt receiving controlled substance: No Vital Signs: 03/18/21 20:08 03/18/21 20:52 Temperature 98 F 98 F Temperature Source Oral Pulse Rate 68 Pulse Rate [Left] 68 Respiratory Rate 18 18 Blood Pressure 145/85 H Blood Pressure [Right Arm] 145/85 H Blood Pressure Mean [Right Arm] 105 02 Sat by Pulse Oximetry 97 - Lab Data Lab results reviewed: Yes: I reviewed the patient's lab results. Lab Results 03/18/21 19:58: Group A Strep Rapid Negative 03/18/21 20:22: Influenza Type A Ag Negative, Influenza Type B Ag Negative Orders (Tests/Meds): ORDERS Category Date Time Status Covid-19 Nasal PCR ([facility]) Routine Lab 03/18/21 20:28 Received Strep Screen Confirmation Stat Micro 03/18/21 19:58 Received [facility] UTC HPI - General Stated complaint: itchy eyes, bilateral ear aches, irritated throat Time Seen by Provider: 03/18/21 20:21 Mode of Arrival: Ambulatory Source of Information: Patient Limitations: No Limitations Description of Symptoms (Recalled from Triage Doc. by RN): pt c/o bilateral ear aches, sore throat, itchy/watery eyes, sneezing and coughing x3 days. HEENT Symptoms (Recalled from RN notes): Yes Resp Symptoms (Recalled from RN notes): Yes Skin Symptoms (Recalled from RN notes): No MS Symptoms (Recalled from RN notes): No Functional Status (Recalled from RN notes): wnl - History of Present Illness Provider Complaint: She states that for the past 2 days she has had sinus congestion, runny nose, scratchy sore throat and she has felt bad. She denies chest congestion and cough. - Related Data Previous Rx's Medication Instructions Recorded Azithromycin [Z-José 250mg Tab*] 250 mg PO UD DOSE PK #6 tab 03/18/21 Benzonatate [Benzonatate 100mg 100 mg PO TIDP PRN #30 cap 03/18/21 cap] guaiFENesin [Mucinex 600mg tablet] 1 - 2 tab PO BIDP PRN #30 tab 03/18/21 methylPREDNISolone [Medrol] 4 mg PO DIRECTED 6 Days #21 03/18/21 packet Allergies Allergy/AdvReac Type Severity Reaction Status Date / Time Penicillins Allergy Severe NA-NAUSEA/VOMITING Verified 03/04/20 13:19 (SEVERE) - Worker's Comp Is this a Worker's Comp case?: No [facility] History - Hepatitis A Screen Drug use history?: No High risk sexual behaviors?: No History of sexually transmitted infection?: No 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
[2021-03-18 20:51] LABS: Strep Scrn Group A (Rapid) Negative (Negative)
[2021-03-18 20:52] VITALS: BP 145/85; PULSE 68; RESP 18; TEMP 36.6; O2SAT 98
[2021-03-18 20:52] LABS: UTC Influenza A Antigen Negative (Negative); UTC Influenza B Antigen Negative (Negative)
== END 2021-03-18 20:53 | disposition home or self-care (01) ==
PROVIDERS: Emergency Provider Nurse Practitioner Family; PCP Physician Assistant
DX: U07.1 COVID-19 (principal); J01.90 Acute sinusitis, unspecified
CPT/HCPCS: 87430; 87804; 99203; C9803; G0463; U0003; U0005

== ENCOUNTER → 2021-05-17 09:58 | Outpatient (CLI) | payer BC, SELFPAY ==
[2021-05-17 11:01] LABS: Basophils # 0.1 K/mm3 (0-0.2); Basophils % 1.1 % (0.1-2.0); Eosinophils # 0.2 K/mm3 (0.0-0.4); Hematocrit 40.2 % (37.0-47.0); Hemoglobin 13.2 g/dL (12.2-16.2); Lymphocytes # 2.2 K/mm3 (0.7-4.5); Lymphocytes % 32.2 % (10-50); Mean Corpuscular HGB Conc 32.9 g/dL (31.8-35.4); Mean Corpuscular Hemoglobin 30.6 pg (27.0-31.2); Mean Corpuscular Volume 92.9 fl (81-99); Mean Platelet Volume 9.2 fl (7.4-10.4); Monocytes # 0.4 K/mm3 (0.1-1.0); Monocytes % 5.6 % (1.7-9.3); Neutrophils # 4.1 K/mm3 (1.8-7.8); Neutrophils % 58.2 % (37.0-80.0); Platelet Count 319 K/mm3 (142-424); Red Blood Count 4.33 M/mm3 (4.20-5.40); Red Cell Distribution Width 13.1 % (11.5-17.5)
[2021-05-17 11:35] LABS: Iron 51 ug/dL (37-170)
[2021-05-17 11:44] LABS: Total Iron Binding Capacity 323 ug/dL (265-497)
== END ==
PROVIDERS: Visit Provider Nurse Practitioner Family
DX: K92.1 Melena (principal); R14.0 Abdominal distension (gaseous); K59.00 Constipation, unspecified; R13.10 Dysphagia, unspecified
CPT/HCPCS: 36415; 82728; 83540; 83550; 85025

== ENCOUNTER → 2021-05-19 16:18 | Outpatient (CLI) | payer BC, SELFPAY ==
[2021-05-19 17:31] LABS: Occult Blood,Stool Negative (Negative)
== END ==
PROVIDERS: Visit Provider Nurse Practitioner Family
DX: K92.1 Melena (principal); R14.0 Abdominal distension (gaseous); K59.00 Constipation, unspecified; R13.10 Dysphagia, unspecified
CPT/HCPCS: 82272; G0328

== ENCOUNTER 2021-06-19 06:39 | Emergency (ER) | payer BC, SELFPAY ==
[2021-06-19 06:40] VITALS: BP 121/83; PULSE 89; RESP 19; TEMP 37.1; O2SAT 97; BMI 47.2
[2021-06-19 07:19] LABS: Coronavirus 19, PCR Not Detected (NotDetected); Influenza A, PCR Not Detected (NotDetected); Influenza B, PCR Not Detected (NotDetected)
[2021-06-19 07:39] LABS: Strep Scrn Group A (Rapid) Negative (Negative)
--- NOTE | 2021-06-19 08:05 | HMH.EDURI ---
[place] Disposition Clinical Impression: Upper respiratory infection Qualifiers: URI type: unspecified URI Qualified Code(s): J06.9 - Acute upper respiratory infection, unspecified Disposition: Home, Self-Care Condition on Discharge: Good Instructions: DI for Acute Bronchitis Additional Instructions: fluids and use meds as directed Prescriptions: Oseltamivir Phosphate [Tamiflu 75mg Capsule] 75 mg PO DAILY #10 cap Transmission Status: Pending to [facility] Referrals: Ayla Guillen PA [Primary Care Provider] - - Critical Care Critical Care Time: No Attestation: On 06/19/21, the high probability of a clinically significant, sudden or life threatening deterioration of the following system(s) required my full and direct attention, intervention and personal management. The time I documented below is in addition to time spent performing reported procedures but includes the following listed in this critical care notation. Medical Decision Making - Medical Records Medical records reviewed: Yes: I reviewed the patient's medical records. - Parveen Inquiry Pt receiving controlled substance: No Vital Signs: 06/19/21 06:40 Temperature 98.7 F Temperature Source Oral Pulse Rate [Right] 89 Respiratory Rate 19 Blood Pressure [Right Arm] 121/83 Blood Pressure Mean [Right Arm] 95 Blood Pressure Source [Right Arm] Automatic Cuff 02 Sat by Pulse Oximetry 97 Oxygen Delivery Method Room Air - Lab Data Lab results reviewed: Yes: I reviewed the patient's lab results. Lab Results 06/19/21 06:45: Group A Strep Rapid Negative 06/19/21 06:45: SARS-CoV-2 (PCR) Not detected, Influenza A Untype (PCR) Not detected, Influenza Type B (PCR) Not detected Orders (Tests/Meds): ORDERS Category Date Time Status Strep Screen Confirmation Stat Micro 06/19/21 06:45 Received Medical Decision Narrative: has stable labs and exam but exposure to flu URI/Sore Throat HPI - General Chief Complaint: Upper Respiratory Infection Stated Complaint: sore throat,stuffy nose Time Seen by Provider: 06/19/21 08:05 Mode of Arrival: Family Vehicle Source of Information: Patient, Medical Record Limitations: No Limitations Description of Symptoms (Recalled from ER Triage Doc. by RN): Pt c/o sore throat and sinus congestion. States her other child had flu A 1 wk ago and now that her other child is sick, she would like to get checked as well. Denies fever, SOA, cough, or chills. - History of Present Illness HPI Narrative: uri sx with exposure to flu MD Complaint: sore throat, nasal congestion Onset (ago): hour(s) Severity: moderate Able to tolerate fluids by mouth: Yes Context: sick contacts Associated symptoms: denies other symptoms Treatments prior to arrival: none - Related Data Home Medications Medication Instructions Recorded Confirmed Bisoprolol Fumarate [Bisoprolol 2.5 mg PO DAILY 06/19/21 06/19/21 5mg Tablet] hydroCHLOROthiazide [HCTZ 25mg 25 mg PO DAILY 06/19/21 06/19/21 tab] Previous Rx's Medication Instructions Recorded Oseltamivir Phosphate [Tamiflu 75 mg PO DAILY #10 cap 06/19/21 75mg Capsule] Allergies Allergy/AdvReac Type Severity Reaction Status Date / Time Penicillins Allergy Severe NA-NAUSEA/VOMITING Verified 03/04/20 13:19 (SEVERE) [facility] History - Hepatitis A Screen Attestation statement:: This patient has been screened for Hepatitis A risk factors. I have reviewed the patient's past medical history: Yes Medical History: Reports:: Arrhythmia Denies:: Congestive Heart Failure, Chronic Obstructive Pulmonary Disease (COPD), Diabetes Mellitus Type 1, Diabetes Mellitus Type 2 Other Medical History: Reports: Anemia Other Surgeries: Yes: Cholecystectomy, , Dilation and Curettage, Hysterectomy-Total, Other Amputation: No Fractures: No - Social History Smoking Status: Former smoker Alcohol Intake: never Alcohol Intake Frequency:: holidays
[2021-06-19 09:41] VITALS: BP 120/79; PULSE 90; RESP 20; TEMP 37; O2SAT 97
== END 2021-06-19 09:41 | disposition home or self-care (01) ==
PROVIDERS: Emergency Provider Emergency Medicine; PCP Physician Assistant
DX: J06.9 Acute upper respiratory infection, unspecified (principal); I49.9 Cardiac arrhythmia, unspecified; D64.9 Anemia, unspecified; I10 Essential (primary) hypertension; Z79.899 Other long term (current) drug therapy; Z87.891 Personal history of nicotine dependence; Z88.0 Allergy status to penicillin
CPT/HCPCS: 87430; 99282; C9803; U0003; U0005

== ENCOUNTER 2021-09-17 17:44 | Emergency (ER) | payer BC, SELFPAY ==
[2021-09-17 18:10] VITALS: BP 139/85; PULSE 83; RESP 19; TEMP 37; O2SAT 100; BMI 43.4
--- NOTE | 2021-09-17 18:45 | HMH.EDUTC ---
[facility] [place] Disposition Clinical Impression: Viral syndrome, Exposure to COVID-19 virus Disposition: Home, Self-Care Condition on Discharge: Good Instructions: DI for COVID-19 (Suspected or Confirmed ), Preventing the Spread of Coronavirus Discharge Instructions Additional Instructions: *Monitor Temp, Over the counter Motrin or Tylenol as directed/as needed Tylenol every 4 hours and Motrin every 6 hours (as long as your family doctor has told you that you can take it) for fever or pain. and straight to ER if unable to lower temp less than 101.0 after medication given *Warm salt water gargles may help to soothe the throat *Throat Lozenges *Warm fluids like tea with honey may help to soothe the throat *Sleep elevated *Humidifier/Vaporizer Follow up IMMEDIATELY for new or worsening symptoms or no Noticeable improvement over the next 48-72 hours. 911 for difficulty breathing or swallowing You were tested for today for COVID19 your test result should be back in the next 24-48 hours, you may check your result on the [facility] My Health Portal Make sure to take your Vitamins Vit. C Vit D and Zinc if you can take them Referrals: Ayla Guillen PA [Primary Care Provider] - As needed Forms: Work/School Release Time of Disposition: 18:48 Medical Decision Making - Parveen Inquiry Pt receiving controlled substance: No Parveen was queried for this patient: No Vital Signs: 09/17/21 18:10 Temperature 98.6 F Temperature Source Oral Pulse Rate [Right Brachial] 83 Respiratory Rate 19 Blood Pressure [Right Arm] 139/85 Blood Pressure Mean [Right Arm] 103 Blood Pressure Source [Right Arm] Automatic Cuff Blood Pressure Position [Right Arm] Sitting 02 Sat by Pulse Oximetry 100 Oxygen Delivery Method Room Air - Lab Data Lab results reviewed: Yes: I reviewed the patient's lab results. Orders (Tests/Meds): ORDERS Category Date Time Status Covid-19 Nasal PCR ([facility]) Routine Lab 09/17/21 18:04 Received [facility] [place] HPI - General Stated complaint: covid test, sore throat, ear ache Time Seen by Provider: 09/17/21 18:20 Mode of Arrival: Ambulatory Source of Information: Patient Limitations: No Limitations Description of Symptoms (Recalled from Triage Doc. by RN): PATIENT C/O EAR PAIN, SORE THROAT, AND BODY ACHES SINCE THIS MORNING. RECENTLY EXPOSED TO COVID HEENT Symptoms (Recalled from RN notes): Yes Resp Symptoms (Recalled from RN notes): No Skin Symptoms (Recalled from RN notes): No MS Symptoms (Recalled from RN notes): No Functional Status (Recalled from RN notes): WNL - History of Present Illness Provider Complaint: Patient states that she has been having pain in her ears, sore throat and body aches since this morning States that son tested postive for strep throat and COVID earlier today and wanted to get tested - Related Data Home Medications Medication Instructions Recorded Confirmed Bisoprolol Fumarate [Bisoprolol 2.5 mg PO DAILY 06/19/21 06/19/21 5mg Tablet] hydroCHLOROthiazide [HCTZ 25mg 25 mg PO DAILY 06/19/21 06/19/21 tab] Previous Rx's Medication Instructions Recorded Oseltamivir Phosphate [Tamiflu 75 mg PO DAILY #10 cap 06/19/21 75mg Capsule] Allergies Allergy/AdvReac Type Severity Reaction Status Date / Time Penicillins Allergy Severe NA-NAUSEA/VOMITING Verified 03/04/20 13:19 (SEVERE) - Worker's Comp Is this a Worker's Comp case?: No [facility] History - Hepatitis A Screen Attestation statement:: This patient has been screened for Hepatitis A risk factors. I have reviewed the patient's past medical history: Yes Medical History: Reports:: Arrhythmia Denies:: Congestive Heart Failure, Chronic Obstructive Pulmonary Disease (COPD), Diabetes Mellitus Type 1, Diabetes Mellitus Type 2 Other Medical History: Reports: Anemia Other Surgeries: Yes: Cholecystectomy, , Dilation and Curettage, Hysterectomy-Total, Other Amputation: No Fractures: No - Social History Smoki
[2021-09-17 18:49] LABS: UTC Strep Screen (Rapid) Negative (Negative)
[2021-09-17 19:02] VITALS: BP 139/85; PULSE 83; RESP 19; TEMP 37; O2SAT 100
== END 2021-09-17 19:07 | disposition home or self-care (01) ==
PROVIDERS: Emergency Provider Nurse Practitioner; PCP Physician Assistant
DX: J02.9 Acute pharyngitis, unspecified (principal); H92.09 Otalgia, unspecified ear; M79.10 Myalgia, unspecified site; Z20.822 Contact with and (suspected) exposure to COVID-19
CPT/HCPCS: 87880; 99212; C9803; G0463; U0003; U0005

== ENCOUNTER 2022-02-06 06:34 | Emergency (ER) | payer BC, SELFPAY ==
[2022-02-06 06:35] VITALS: BP 140/86; PULSE 87; RESP 18; TEMP 36.8; O2SAT 99; BMI 40.2
--- NOTE | 2022-02-06 06:45 | HMH.EDGENADL ---
Discharge Plan Disposition Patient Disposition: Home, Self-Care Condition: Good Prescriptions Prescriptions: No Action bisoprolol fumarate 5 MG tablet 2.5 mg PO DAILY hydrochlorothiazide 25 MG tablet 25 mg PO DAILY oseltamivir 75 MG capsule 75 mg PO DAILY Qty: 10 0RF Referrals Follow up/Referrals: Ayla Guillen PA [Primary Care Provider] - See instructions Activity Restrictions/Add. Instructions Additional Instructions/Restrictions: Follow up with OBGYN/women's health if symptoms continue. Clinical Impressions Clinical Impression: Vaginal discharge Instructions Patient Instructions: DI for Vaginal Discharge Print Language Print Language: Citizen Of [place] Discharge ED Provider: Leni Guerra Adult HPI General Chief complaint: Urogenital-Female Stated complaint: brown discharge,minor pain; total hysterectomy Time Seen by Provider: 02/06/22 06:45 Mode of Arrival: Ambulatory Source of Information: Patient Limitations: No Limitations History of Present Illness HPI narrative: Pj is a 41 yo female s/p hysterectomy presenting with brown vaginal discharge, x1 episode. Patient denies any vaginal pain. No abdominal pain. No bowel changes. No fevers or other infectious symptoms. No vaginal lesions. reports she is not concerned for STD and does not want testing. complaint: Brown vaginal discharge Related Data Home Medications Medication Instructions Recorded Confirmed bisoprolol fumarate 5 mg tablet 2.5 mg PO DAILY htn 06/19/21 06/19/21 hydrochlorothiazide 25 mg tablet 25 mg PO DAILY htn 06/19/21 06/19/21 Previous Rx's Medication Instructions Recorded oseltamivir 75 mg capsule 75 mg PO DAILY #10 caps 06/19/21 Allergies Allergy/AdvReac Type Severity Reaction Status Date / Time Penicillins Allergy Severe NA-NAUSEA/VOMITING Verified 03/04/20 13:19 (SEVERE) [facility] Disclaimer: The information contained in this section may have been updated after the patient was seen, as this information can be updated by other users. Social History Smoking Status: Never smoker alcohol intake: never substance use type: denies use and marijuana current occupational status: other Travel in the last 8 weeks: None number of children: 4 ROS Obtained: Yes All systems reviewed & no additional complaints except as documented Physical Exam General General appearance: alert and in no apparent distress Head Head exam: atraumatic and normal inspection Eye Eye exam: Present normal appearance and EOMI ENT ENT exam: Present normal exam, normal oropharynx and mucous membranes moist Neck Neck exam: Present normal inspection and full ROM Chest Chest inspection: Present normal inspection and symmetric chest wall rise Respiratory Respiratory exam: Present normal lung sounds bilaterally Cardiovascular Cardiovascular exam: Present regular rate and normal heart sounds Abdominal Exam Abdominal exam: Present soft Extremities Exam Extremities exam: Present normal inspection and full ROM Back Exam Back exam: Present normal inspection and full ROM Neurological Exam Neurological exam: Present alert and oriented X3 Medical Decision Making Medical Records Medical records reviewed: Yes I reviewed the patient's medical records. Parveen Inquiry Pt receiving controlled substance: No Vital Signs: 02/06/22 06:35 02/06/22 07:13 02/06/22 07:13 Temperature 98.2 F 98.0 F Temperature Source Oral Pulse Rate 70 Pulse Rate [Right] 87 Respiratory Rate 18 18 Blood Pressure 140/85 Blood Pressure [Right Arm] 140/86 Blood Pressure Mean [Right Arm] 104 Blood Pressure Source [Right Arm] Automatic Cuff 02 Sat by Pulse Oximetry 99 Oxygen Delivery Method Room Air Room Air Room Air Lab Data Lab results reviewed: Yes I reviewed the patient's lab results. Lab Results 02/06/22 06:41: Urine Color Yellow, Urine Appearance
[2022-02-06 06:50] LABS: Microscopic, Urine URINE MICROSCOPIC (MICROSCOPIC)
[2022-02-06 06:51] LABS: Appearance,Urine CLEAR (Clear); Bilirubin,Urine Negative (Negative); Blood, Urine Negative (Negative); Color,Urine YELLOW (Yellow); Glucose,Urine (UA) Negative (Negative); Ketones,Urine Negative (Negative); Leukocyte Esterase,Urine Negative (Negative); Nitrate,Urine Negative (Negative); Protein,Urine Negative (Negative); Urobilinogen,Urine 0.2 EU/dl (0.2)
[2022-02-06 07:13] VITALS: BP 140/85; PULSE 70; RESP 18; TEMP 36.7; O2SAT 98
[2022-02-06 07:15] LABS: Bacteria,Urine 1+ /lpf; RBC,Urine Occasional #/hpf (0-3); Squamous Epithelial Cell,Urine 20-50 #/hpf (0-5)
== END 2022-02-06 07:22 | disposition home or self-care (01) ==
PROVIDERS: Emergency Provider Student in an Organized Health Care Education/Training Program; PCP Physician Assistant
DX: N89.8 Other specified noninflammatory disorders of vagina (principal); Z90.710 Acquired absence of both cervix and uterus
CPT/HCPCS: 81001; 99283

== ENCOUNTER 2022-04-22 10:00 | Outpatient (RCR) | payer BC, SELFPAY | END 2022-04-22 10:05 | disposition home or self-care (01) | LOC: PT 10:00 | PROVIDERS: PCP Physician Assistant; Visit Provider Podiatrist Foot & Ankle Surgery | DX: M76.62 Achilles tendinitis, left leg (principal); G57.52 Tarsal tunnel syndrome, left lower limb | CPT/HCPCS: 97010; 97014; 97016; 97035; 97110; 97140; 97163; 97164; 97535; G0283 ==

== ENCOUNTER → 2022-05-07 14:57 | Outpatient (CLI) | payer BC, SELFPAY ==
[2022-05-07 16:03] LABS: Chol/HDL Ratio 4.3 (1-3.5); Cholesterol 208 mg/dl (140-200); HDL Cholesterol 48 mg/dl (40-60); Triglycerides 86 mg/dl (30-150); VLDL Cholesterol 17 mg/dL (0-40)
[2022-05-07 16:14] LABS: Direct LDL Cholesterol 132.58 mg/dL (100-129); Hemoglobin A1C 4.8 % (4.0-6.0)
[2022-05-07 16:33] LABS: Thyroid Stimulating Hormone 1.62 uIU/mL (0.465-4.68)
== END ==
PROVIDERS: PCP Nurse Practitioner Family; Visit Provider Nurse Practitioner Family
DX: E11.9 Type 2 diabetes mellitus without complications (principal); E05.90 Thyrotoxicosis, unspecified without thyrotoxic crisis or storm; I10 Essential (primary) hypertension
CPT/HCPCS: 36415; 80061; 83036; 84443

== ENCOUNTER 2022-05-31 21:48 | Emergency (ER) | payer BC, SELFPAY ==
[2022-05-31 22:21] VITALS: BP 155/81; PULSE 80; RESP 18; O2SAT 94
[2022-05-31 22:24] VITALS: BP 155/81; PULSE 80; RESP 18; TEMP 36.6; O2SAT 98; BMI 35.4
--- NOTE | 2022-05-31 22:29 | XR_ITS ---
PROCEDURE INFORMATION: Exam: XR Left Ankle Exam date and time: 05/31/2022 10:56 PM Age: 41 years old Clinical indication: Pain; Ankle; Left; Additional info: Ankle injury TECHNIQUE: Imaging protocol: Radiologic exam of the left ankle. Views: 3 or more views. COMPARISON: DX XR ANKLE LT MIN 3V 02/20/2020 3:01 PM FINDINGS: Bones/joints: Normal. Soft tissues: Normal. IMPRESSION: No acute findings.
--- NOTE | 2022-05-31 22:29 | XR_ITS ---
PROCEDURE INFORMATION: Exam: XR Left Foot Exam date and time: 05/31/2022 10:54 PM Age: 41 years old Clinical indication: Pain; Foot; Left; Additional info: Ankle injury TECHNIQUE: Imaging protocol: Radiologic exam of the left foot. Views: 3 or more views. COMPARISON: DX XR FOOT LT MIN 3V 02/20/2020 3:01 PM FINDINGS: Bones/joints: Normal. Soft tissues: Normal. IMPRESSION: No acute findings.
[2022-05-31 22:31] VITALS: BP 120/74; PULSE 78; RESP 20; O2SAT 98
[2022-05-31 23:00] VITALS: BP 121/75; PULSE 80; RESP 20; O2SAT 98
[2022-05-31 23:30] VITALS: BP 116/74; PULSE 74; RESP 20; O2SAT 98
--- NOTE | 2022-06-01 00:27 | HMH.EDLOEX ---
Discharge Plan Disposition Patient Disposition: Home, Self-Care Chief Complaint: Extremity Injury, Lower Prescriptions Prescriptions: No Action No Known Home Medications Referrals Follow up/Referrals: Janina Washington APRN [Primary Care Provider] - See instructions Luis Manuel Choi JR, MD [Physician] - See instructions Nelli Hoyt DPM [Staff Physician] - See instructions Clinical Impressions Clinical Impression: Injury of foot, left Instructions Patient Instructions: DI for Foot Pain Discharge ED Provider: Ryan (ED)Ramsey Lower Extremity Injury HPI General Chief Complaint: Extremity Injury, Lower Stated Complaint: pain in Left ankle (No Accident Time Seen by Provider: 06/01/22 00:27 Mode of Arrival: Ambulatory Source of Information: Patient and Medical Record Limitations: No Limitations Description of Symptoms (Recalled from ER Triage Doc. by RN): pt arrives via private vehicle c c/o left ankle pain that began tonight at approx 1800, states that she was walking to her house and believes that she stepped on a step and began to have severe pain in that foot. States that she has had a previous fracture in this foot which was treated in October of last year. History of Present Illness HPI Narrative: pt with prev ankle fx in the fall and tonight with pain with wt bearing - no def trauma - MD complaint: ankle injury and foot injury Onset (ago): hour(s) Injury: Left: ankle and foot Type of Injury: unknown Place: home Severity: moderate Exacerbating factors: weight bearing Associated symptoms: able to partially bear weight Related Data Home Medications Medication Instructions Recorded Confirmed No Known Home Medications 05/07/22 05/07/22 Allergies Allergy/AdvReac Type Severity Reaction Status Date / Time Penicillins Allergy Severe NA-NAUSEA/VOMITING Verified 05/26/22 14:31 (SEVERE) [facility] Disclaimer: The information contained in this section may have been updated after the patient was seen, as this information can be updated by other users. Medical History (Updated 06/01/22 @ 00:34 by Ramsey Davis (ED)MD) Callus of foot Chest pain, atypical Diarrhea Edema of both lower extremities Exposure to COVID-19 virus Foot pain Headache Metatarsalgia of both feet Migraine variant Morbid obesity with body mass index (BMI) of 40.0 to 49.9 Palpitations Pharyngitis Sinusitis Sinusitis Strep pharyngitis Upper respiratory infection Vaginal discharge Viral syndrome Surgical History H/O gastric sleeve Family History Grandfather Heart attack, Onset Age: 30 Stroke, Onset Age: 70 Cancer Sister Epilepsy Substance abuse Bipolar 1 disorder Father Hyperlipidemia Hypertension Stroke, Onset Age: 60 Mother Hyperlipidemia Hypertension Social History (Updated 05/07/22 @ 15:31 by Janina Washington APRN) Smoking Status: Never smoker years smoked: 4 how long ago did patient quit smokin years ago alcohol intake: former substance use type: denies use and marijuana current occupational status: employed and other Travel in the last 8 weeks: None number of children: 4 ROS Obtained: Yes All systems reviewed & no additional complaints except as documented Physical Exam General General appearance: alert Head Head exam: normocephalic Eye Eye exam: Present PERRL and EOMI ENT ENT exam: Present mucous membranes moist Neck Neck exam: Present full ROM Respiratory Respiratory exam: Absent respiratory distress Cardiovascular Cardiovascular exam: Present regular rate Expanded Lower Extremity Exam Left: Ankle exam: Absent tenderness Foot/toe exam: Present tenderness; Absent full ROM or swelling Neurovascular/Tendon exam: Absent motor deficit Neurological Exam Neurological exam: Present alert, oriented X3 and CN II-X
[2022-06-01 00:39] VITALS: BP 116/74; PULSE 75; RESP 18; TEMP 36.6; O2SAT 99
== END 2022-06-01 00:42 | disposition home or self-care (01) ==
PROVIDERS: Emergency Provider Emergency Medicine; PCP Nurse Practitioner Family
DX: M25.572 Pain in left ankle and joints of left foot (principal)
CPT/HCPCS: 73610; 73630; 99283

== ENCOUNTER 2022-07-07 10:00 | Outpatient (RCR) | payer BC, SELFPAY ==
--- NOTE | 2022-05-20 12:01 | HMH.PTOPWND ---
Rehab Outpt Wound Evaluation Rehab OP Wound Evaluation Start: 05/20/22 11:51 Freq: Status: Active Protocol: Document 05/20/22 11:51 BOBBY (Rec: 05/20/22 12:01 PHOWILLAM [id number]) E-signed By Ajit Tirado, PT Subjective/History History History This is the initial PT eval for Millie Oliva 41 yowf who presents with c/o B LE swelling and pain x >20 yrs. She states, I feel like my legs have been bigger than other women my whole life. She reports intermittent pain and tingling in B lower legs, worse with prolonged standing. She also reports moderate tenderness with palpation in the same areas. She has hx of heart palpitations, CCY, Gastric Sleeve, and x 2. Subjective Subjective Currently pain is 0/10, at worst pain is 7/10. TTP: 2/4 in B lower legs this date. Edema is 1+ pitting with mild fibrosis underlying in B LE, R worse than L. Significant small nodules noted throughout B LE and UE with light palpation (denotes Lipidema underlying). 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 Lymphedema Eval Classification of Lymphedema Secondary Lymphedema Yes Other Lymphedema Cause Yes: Lipolymphedema Stemmer's sign Stemmer's Sign yes Stage of Lymphedema Lymphedema stages Stage II (Pitting edema, increased fibrosis w/ decreased pitting) Skin Changes Dry Skin Yes Skin Folds Yes Discoloration of Skin Yes Other Changes Yes Pain Scale Pain Scale (0-10) 7 Affected Extremities Areas Affected by Lymphedema/Edema Abdomen,Right Lower Extremity, Left Lower Extremity Manual Lymphatic Drainage Treatment Area MLD Treatment Area Abdomen,Right Lower Extremity, Left Lower Extremity Wound Problems/Impairments Impairments Problems/Impairmments Palpation Tenderness,Impaired Endurance,Impaired Walking,
--- NOTE | 2022-06-15 16:23 | HMH.RHREAS ---
Rehab Reassessment Rehab OP Re-assessment Start: 06/15/22 16:16 Freq: Status: Active Protocol: Document 06/15/22 16:17 BOBBY (Rec: 06/15/22 16:23 PHOWILLAM [id number]) E-signed By Ajit Tirado PT Rehab Re-assessment Subjective Subjective Pt reports no pain in B LE currently. At worst, pain is 4 /10, usually in the evening. Pt is excited to be possibly getting lymphedema pump for home use. Objective Objective Notes Circumferential Measurements: R LE total is 329.7 cm. L LE total is 333.0 cm. TTP: 1/4 B lower legs. Pain: At worst, 4/10. Edema: No pitting noted, but continued mild fibrotic edema in B LE. Assessment Progress Assessment Progressing as Expected Assessment Notes Pt has shown significant overall imporvements in edema, pain, and palpation tenderness in B lower legs. She continues to need skilled intervention as she has tried compression and elevation for > 4 weeks without relief and she continues to have stiffness in the tissue during palpation assessment. Patient goals met ST,2,3,4,5,6 Goals Not Met LT,2,3,4,5,6,7,8,9 Revised Goals none Plan Plan Continue per initial POC. Frequency of Therapy 2 x/wk Duration of therapy 4 wks Time and Billing Re-Eval Time 16 Re-Eval Billing Units 1 PHYSICIAN CERTIFICATION: I certify the specified therapy services for Millie Oliva are required, authorized, and reviewed every 30 days.
== END 2022-07-07 10:05 | disposition home or self-care (01) ==
LOC: PT 10:00
PROVIDERS: PCP Nurse Practitioner Family; Visit Provider Nurse Practitioner Family
DX: I89.0 Lymphedema, not elsewhere classified (principal)
CPT/HCPCS: 97110; 97140; 97162; 97164

== ENCOUNTER → 2022-09-29 16:49 | Outpatient (CLI) | payer BC, SELFPAY ==
[2022-09-29 15:29] LABS: Adenovirus,PCR Not Detected (NotDetected); Bordetella Pertussis Not Detected (NotDetected); Chlamydophila Pneumoniae, PCR Not Detected (NotDetected); Coronavirus 19, PCR Not Detected (NotDetected); Coronavirus 229E Not Detected (NotDetected); Coronavirus NL63 Not Detected (NotDetected); Coronavirus OC43 Not Detected (NotDetected); Coronovirus HKU1,PCR Not Detected (NotDetected); Human Metapneumovirus Not Detected (NotDetected); Influenza A, PCR Not Detected (NotDetected); Influenza AH1, 2009 Not Detected (NotDetected); Influenza AH1, PCR Not Detected (NotDetected); Influenza AH3,PCR Not Detected (NotDetected); Influenza B, PCR Not Detected (NotDetected); Mycoplasma Pneumoniae, PCR Not Detected (NotDetected); Parainfluenza 1, PCR Not Detected (NotDetected); Parainfluenza 2, PCR Not Detected (NotDetected); Parainfluenza 3, PCR Not Detected (NotDetected); Parainfluenza 4, PCR Not Detected (NotDetected); Respiratory Syncytial Virus Not Detected (NotDetected); Rhinovirus/Enterovirus Not Detected (NotDetected)
== END ==
LOC: LAB.DROPOF 16:50
PROVIDERS: PCP Nurse Practitioner Family; Visit Provider Nurse Practitioner Family
DX: J02.9 Acute pharyngitis, unspecified (principal); J06.9 Acute upper respiratory infection, unspecified
CPT/HCPCS: 87070; 87581; 87632; 87798

== ENCOUNTER 2022-12-27 17:10 | Emergency (ER) | payer BC, SELFPAY ==
--- NOTE | 2022-12-27 17:28 | XR_ITS ---
PROCEDURE INFORMATION: Exam: XR Chest Exam date and time: 12/27/2022 5:26 PM Age: 42 years old Clinical indication: Cough TECHNIQUE: Imaging protocol: Radiologic exam of the chest. Views: 2 views. COMPARISON: CR XR CHEST 2V 12/29/2020 9:05 PM FINDINGS: Lungs: No evidence of acute pulmonary disease or infiltrates; lung castillo appear clear. Pleural spaces: No evidence of pleural effusion, pneumothorax, or pleural thickening in the visualized pleural spaces. Heart/Mediastinum: No evidence of mediastinal widening or cardiac silhouette enlargement; the mediastinum and heart appear within normal limits for contour and size. Bones/joints: There are degenerative changes of the thoracic spine. IMPRESSION: No dense parenchymal consolidation, pleural effusion, or pneumothorax.
[2022-12-27 17:30] VITALS: BP 142/67; PULSE 75; RESP 18; TEMP 36.4; O2SAT 100; BMI 33.8
--- NOTE | 2022-12-27 17:37 | EXP.UTC ---
Discharge Plan Disposition Patient Disposition: Home, Self-Care Condition: Good Prescriptions Prescriptions: New methylprednisolone 4 mg Tablets,Dose Pack 4 mg PO DIRECTED Qty: 21 0RF albuterol sulfate [Ventolin HFA] 90 mcg/actuation HFA aerosol inhaler 2 puff inhalation Q6H PRN (Reason: shortness of breath or wheezing) Qty: 6.7 0RF cefdinir 300 mg capsule 300 mg PO BID Qty: 20 0RF No Action bisoprolol fumarate 10 mg tablet 5 mg PO DAILY Rx Instructions: Take 1/2 tablet daily. Bariatric Multivitamins 45 mg iron- 800 mcg-120 mcg capsule PO ascorbate calcium (vitamin C) 500 mg tablet 500 mg PO TID Chewable Iron 30-10-25 mg tablet,chewable 1 tab PO DAILY Referrals Follow up/Referrals: Provider,Referral, MD [Primary Care Provider] - See instructions Activity Restrictions/Add. Instructions Additional Instructions/Restrictions: Drink plenty of fluids. Take tylenol or ibuprofen for pain or fever. Take the medications as directed. Follow up with your regular doctor. GO TO THE ER FOR ANY WORSENING SYMPTOMS Clinical Impressions Clinical Impression: Acute bronchitis, Otitis media Stand Alone Forms Stand Alone Forms: Work/School Release Instructions Patient Instructions: Middle Ear Infection, DI for Acute Bronchitis Discharge ED Provider: Evans Price [facility] General Stated complaint: discomfort in the lungs when she breaths Time Seen by Provider: 12/27/22 17:37 History of Present Illness Provider Complaint: She c/o chest congestion, wheezing, sinus congestion and ear pain for the past 2 days. Related Data Home Medications Medication Instructions Recorded Confirmed ascorbate calcium (vitamin C) 500 500 mg PO TID 10/01/22 10/01/22 mg tablet bisoprolol fumarate 10 mg tablet 5 mg PO DAILY palpitations 10/01/22 12/27/22 iron,carbonyl 30 mg-vitamin C 10 1 tab PO DAILY 10/01/22 10/01/22 mg-FOS 25 mg chewable tablet (Chewable Iron) [id number] 45 mg-folic cap PO 10/01/22 10/01/22 acid 800 mcg-vit K 120 mcg capsule (Bariatric Multivitamins) Previous Rx's Medication Instructions Recorded albuterol sulfate 90 mcg/actuation 2 puff inhalation Q6H PRN 12/27/22 aerosol inhaler (Ventolin HFA) shortness of breath or wheezing #6.7 grams cefdinir 300 mg capsule 300 mg PO BID #20 caps 12/27/22 methylprednisolone 4 mg tablets in 4 mg PO DIRECTED #21 tabs 12/27/22 a dose pack Allergies Allergy/AdvReac Type Severity Reaction Status Date / Time Penicillins Allergy Severe NA-NAUSEA/VOMITING Verified 12/27/22 17:46 (SEVERE) [facility] Disclaimer: The information contained in this section may have been updated after the patient was seen, as this information can be updated by other users. Medical History Callus of foot Chest pain, atypical Diarrhea Edema of both lower extremities Exposure to COVID-19 virus Foot pain Headache Injury of foot, left Left ankle pain Metatarsalgia of both feet Migraine variant Morbid obesity with body mass index (BMI) of 40.0 to 49.9 Palpitations Pharyngitis Sinusitis Sinusitis Strep pharyngitis Upper respiratory infection Vaginal discharge Viral syndrome Surgical History H/O gastric sleeve Sep 2021 Family History Grandfather , age 83 Heart attack, Onset Age: 30 Stroke, Onset Age: 70 Cancer stomach and esophageal Sister Epilepsy Substance abuse drug abuse Bipolar 1 disorder Father Hyperlipidemia Hypertension Stroke, Onset Age: 60 r/t small brain stem Mother Hyperlipidemia Hypertension Social History Smoking Status: Never smoker years smoked: 4 how long ago did patient quit smokin years
[2022-12-27 18:23] VITALS: BP 142/67; PULSE 75; RESP 18; TEMP 36.4; O2SAT 100
== END 2022-12-27 18:23 | disposition home or self-care (01) ==
PROVIDERS: Emergency Provider Nurse Practitioner Family
DX: J20.9 Acute bronchitis, unspecified (principal); H66.93 Otitis media, unspecified, bilateral; R07.1 Chest pain on breathing; R09.89 Other specified symptoms and signs involving the circulatory and respiratory systems; R06.2 Wheezing; R09.81 Nasal congestion
CPT/HCPCS: 71046; 87635; 99212; 99214; G0463

== ENCOUNTER 2023-03-26 13:08 | Outpatient (CLI) | payer BC, SELFPAY ==
--- NOTE | 2023-03-26 13:14 | XR_ITS ---
FINAL REPORT CLINICAL HISTORY: NECK PAIN COMPARISON: None FINDINGS: AP, lateral and odontoid views of the cervical spine were obtained. There is no prior exam for comparison. There is no acute fracture. There is mild kyphosis centered at the C5 level. Vertebral body height is preserved. The precervical soft tissues are normal. IMPRESSION: No acute osseous abnormality of the cervical spine. Reviewed, Interpreted and Dictated by Mychal Vega III, MD Transcribed by Kayla Groves Authenticated and [facility]
== END 2023-03-26 23:59 ==
PROVIDERS: PCP Physician Assistant; Visit Provider Physician Assistant
DX: M54.2 Cervicalgia (principal)
CPT/HCPCS: 72040

== ENCOUNTER 2023-04-08 12:28 | Outpatient (CLI) | payer BC, SELFPAY ==
--- NOTE | 2023-04-08 12:33 | XR_ITS ---
FINAL REPORT CLINICAL HISTORY: LOW BACK PAIN COMPARISON: None. FINDINGS: AP, lateral, and oblique views of the lumbar spine were obtained. There is no acute fracture or acute malalignment. Vertebral body height is preserved. Disc space height is preserved.. No acute paraspinal abnormality is identified. Cholecystectomy clips are noted. IMPRESSION: No acute osseous abnormalities lumbar spine. If pain persists, MRI is recommended. Authenticated and [facility]
== END 2023-04-08 23:59 ==
LOC: RAD 12:29
PROVIDERS: PCP Physician Assistant; Visit Provider Physician Assistant
DX: M54.50 Low back pain, unspecified (principal)
CPT/HCPCS: 72110

== ENCOUNTER 2023-05-20 08:11 | Outpatient (CLI) | payer BC, SELFPAY ==
[2023-05-20 08:45] LABS: Basophils # 0.1 K/mm3 (0-0.2); Basophils % 1.8 % (0.1-2.0); Eosinophils # 0.1 K/mm3 (0.0-0.4); Eosinophils % 2.4 % (0.1-12.0); Hematocrit 39.5 % (37.0-47.0); Hemoglobin 12.8 g/dL (12.2-16.2); Lymphocytes # 2.4 K/mm3 (0.7-4.5); Mean Corpuscular HGB Conc 32.3 g/dL (31.8-35.4); Mean Corpuscular Hemoglobin 31.1 pg (27.0-31.2); Mean Corpuscular Volume 96.3 fl (81-99); Mean Platelet Volume 9.1 fl (7.4-10.4); Monocytes # 0.3 K/mm3 (0.1-1.0); Monocytes % 5.3 % (1.7-9.3); Neutrophils # 2.3 K/mm3 (1.8-7.8); Neutrophils % 44.5 % (37.0-80.0); Platelet Count 234 K/mm3 (142-424); Red Cell Distribution Width 12.6 % (11.5-17.5); White Blood Count 5.2 K/mm3 (4.8-10.8)
[2023-05-20 09:04] LABS: Iron 81 ug/dL (37-170)
[2023-05-20 09:14] LABS: Total Iron Binding Capacity 271 ug/dL (265-497)
== END 2023-05-20 23:59 | disposition home or self-care (01) ==
LOC: LAB 08:13
PROVIDERS: PCP Physician Assistant; Visit Provider Nurse Practitioner Family
DX: D64.9 Anemia, unspecified (principal); K92.1 Melena; Z79.1 Long term (current) use of non-steroidal anti-inflammatories (NSAID)
CPT/HCPCS: 36415; 82728; 83540; 83550; 85025

== ENCOUNTER 2023-05-25 15:28 | Outpatient (CLI) | payer BC, SELFPAY ==
[2023-05-25 16:52] LABS: Occult Blood,Stool Negative (Negative)
[2023-05-25 16:52] LABS: Occult Blood,Stool Negative (Negative)
[2023-05-25 16:53] LABS: Occult Blood,Stool Negative (Negative)
== END 2023-05-25 23:59 ==
LOC: LAB.DROPOF 15:28
PROVIDERS: PCP Physician Assistant; Visit Provider Nurse Practitioner Family
DX: D64.9 Anemia, unspecified (principal); K92.1 Melena; Z79.1 Long term (current) use of non-steroidal anti-inflammatories (NSAID)
CPT/HCPCS: 82272; G0328

== ENCOUNTER 2023-06-12 16:14 | Emergency (ER) | payer BC, SELFPAY ==
[2023-06-12 16:14] VITALS: BP 136/75; PULSE 98; RESP 16; TEMP 36.5; O2SAT 99; BMI 33.5
--- NOTE | 2023-06-12 16:22 | ECG_ITS ---
APPROVED REPORT Exam: Resting ECG HR:103 bpm ECG Measurements Heart Rate 103 AXES KS 142 P 76 QRSd 89 QRS 34 QT 370 T 13 QTc 429 Conclusion SINUS TACHYCARDIA NONSPECIFIC T-WAVE ABNORMALITY ABNORMAL RHYTHM ECG Electronically signed by : JOE VALDES, 06/13/2023 07:22:17
[2023-06-12] MEDS: KETOROLAC 30MG/ML VIAL 15 MG IV (16:27)
[2023-06-12] MEDS: LACTATED RINGERS 1000ML 1,000 ML 999 ML IV (16:27)
[2023-06-12] MEDS: hydrOXYzine pamoate 25MG CAPSULE 25 MG PO (16:27)
[2023-06-12] MEDS: ONDANSETRON 4MG/2ML VIAL 4 MG IV (16:28)
[2023-06-12 16:30] VITALS: BP 136/75; PULSE 100; RESP 18; O2SAT 98
--- NOTE | 2023-06-12 16:47 | [facility].EDGENADL ---
Discharge Plan Disposition Patient Disposition: Home, Self-Care Chief Complaint: Headache Prescriptions Prescriptions: No Action bisoprolol fumarate 10 mg tablet 5 mg PO DAILY Rx Instructions: Take 1/2 tablet daily. Bariatric Multivitamins 45 mg iron- 800 mcg-120 mcg capsule PO ascorbate calcium (vitamin C) 500 mg tablet 500 mg PO TID Chewable Iron 30-10-25 mg tablet,chewable 1 tab PO DAILY methylprednisolone 4 mg Tablets,Dose Pack 4 mg PO DIRECTED Qty: 21 0RF albuterol sulfate [Ventolin HFA] 90 mcg/actuation HFA aerosol inhaler 2 puff inhalation Q6H PRN (Reason: shortness of breath or wheezing) Qty: 6.7 0RF cefdinir 300 mg capsule 300 mg PO BID Qty: 20 0RF Referrals Follow up/Referrals: Provider,Referral, MD [Referring] - See instructions Activity Restrictions/Add. Instructions Additional Instructions/Restrictions: Begin taking your bisoprolol again, withdrawal from this medication will cause anxiety and tachycardia. Call your family doctor to establish care for this visit to the emergency department and schedule follow-up within 48 hours to ensure improvement. If you have any worsening of your condition or any other concerning signs or symptoms, return to the emergency department or your primary care doctor for further evaluation. Clinical Impressions Clinical Impression: Tachycardia, Anxiety, Acute dehydration Discharge ED Provider: Taran Diaz General Adult HPI General Chief complaint: Headache Stated complaint: anxiety weakness Time Seen by Provider: 06/12/23 16:20 History of Present Illness HPI narrative: Please note that above description of symptoms, in this electronic medical record under categorization of recalled from ER triage doctor by RN are reflective of an initial nursing assessment, however, is not reflective of my full history and physical exam that was personally taken and clarified. Consequentially, this preceding description of symptoms, which may include the patient's categorized chief complaint in the EMR, do not reflect my personal clinical impression, and the ultimate description of history of present illness and patient stated complaints should be deferred to this section of the note. Unless stated otherwise or congruent with this section of the note, additional signs, symptoms, or incongruence should be interpreted as inaccurate with my clinical impression. Related Data Home Medications Medication Instructions Recorded Confirmed ascorbate calcium (vitamin C) 500 500 mg PO TID 10/01/22 10/01/22 mg tablet bisoprolol fumarate 10 mg tablet 5 mg PO DAILY palpitations 10/01/22 12/27/22 iron,carbonyl 30 mg-vitamin C 10 1 tab PO DAILY 10/01/22 10/01/22 mg-FOS 25 mg chewable tablet (Chewable Iron) [id number] 45 mg-folic cap PO 10/01/22 10/01/22 acid 800 mcg-vit K 120 mcg capsule (Bariatric Multivitamins) Previous Rx's Medication Instructions Recorded albuterol sulfate 90 mcg/actuation 2 puff inhalation Q6H PRN 12/27/22 aerosol inhaler (Ventolin HFA) shortness of breath or wheezing #6.7 grams cefdinir 300 mg capsule 300 mg PO BID #20 caps 12/27/22 methylprednisolone 4 mg tablets in 4 mg PO DIRECTED #21 tabs 12/27/22 a dose pack Allergies Allergy/AdvReac Type Severity Reaction Status Date / Time Penicillins Allergy Severe NA-NAUSEA/VOMITING Verified 12/27/22 17:46 (SEVERE) [facility] Disclaimer: The information contained in this section may have been updated after the patient was seen, as this information can be updated by other users. Medical History Callus of foot Chest pain, atypical Diarrhea Edema of both lower extremities Exposure to COVID-19 virus Foot pain Headache Injury of foot, left Left ankle pain Metatarsalgia of both feet Migraine variant Morbid obesity with body mass index (BMI) of 40.0 to 49.9 Palpitations Pharyngitis Sinusitis Sinusitis Strep pharyngitis Upper respiratory infection Vaginal discharge Viral syndrome Surgical History H/O gastric sleeve Sep 2021 Family History Grandfather , age 83 Heart attack, Onset Age: 30 Stroke, Onset Age: 70 Cancer stomach and esophageal Sister Epilepsy Substance abuse drug abuse Bipolar 1 disorder Father Hyperlipidemia Hypertension Stroke, Onset Age: 60 r/t small brain stem Mother Hyperlipidemia Hypertension Social History Smoking Status: Former smoker years smoked: 4 how long ago did patient quit smokin years ago alcohol intake: former substance use type: denies use and marijuana current occupational status: employed and other Travel in the last 8 weeks: None number of children: 4 ROS Obtained: Yes All systems reviewed & no additional complaints except as documented Physical Exam General General appearance: alert and in no apparent distress Head Head exam: atraumatic and normocephalic Eye Eye exam: Present normal appearance, PERRL and EOMI ENT ENT exam: Present mucous membranes moist Neck Neck exam: Present normal inspection, full ROM and trachea midline Respiratory Respiratory exam: Absent respiratory distress, wheezes, stridor, accessory muscle use or prolonged expiratory phase Cardiovascular Cardiovascular exam: Present normal rhythm Abdominal Exam Abdominal exam: Present soft; Absent distention, tenderness, guarding, rebound or rigidity Extremities Exam Extremities exam: Absent edema Neurological Exam Neurological exam: Present alert, oriented X3, CN II-XII intact and normal gait; Absent motor sensory deficit Skin Skin exam: Present warm and dry; Absent diaphoresis or erythema Medical Decision Making Medical Records Medical records reviewed: Yes I reviewed the patient's medical records. Parveen Inquiry Pt receiving controlled substance: No Parveen was queried for this patient: No Vital Signs: 06/12/23 16:14 06/12/23 16:30 06/12/23 17:00 Temperature 97.7 F Temperature Source Oral Pulse Rate 100 H 97 H Pulse Rate [Right] 98 H Respiratory Rate 16 18 18 Blood Pressure 136/75 126/63 Blood Pressure [Right Arm] 136/75 Blood Pressure Mean 95 84 Blood Pressure Mean [Right Arm] 95 Blood Pressure Source [Right Arm] Automatic Cuff 02 Sat by Pulse Oximetry 99 98 100 Oxygen Delivery Method Room Air Orders (Tests/Meds): ED MEDICATIONS Discontinued Medications Generic Name Dose Route Start Last Admin Trade Name Fosterq PRN Reason Stop Dose Admin Bisoprolol Fumarate 2.5 mg 06/12/23 16:28 06/12/23 16:56 Bisoprolol 5mg Tablet PO 06/12/23 16:29 2.5 mg ONCE ONE Administration Hydroxyzine Pamoate 25 mg 06/12/23 16:20 06/12/23 16:27 Hydroxyzine Pamoate 25mg Capsule PO 06/12/23 16:21 25 mg ONCE ONE Administration Lactated Ringer's 1,000 mls @ 999 mls/hr 06/12/23 16:20 06/12/23 16:27 Lactated Ringer's 1000 Ml Bag IV 06/12/23 17:20 999 mls/hr .Q1H1M ONE Administration Ketorolac Tromethamine 15 mg 06/12/23 16:21 06/12/23 16:27 Ketorolac 30mg/Ml Vial IV 06/12/23 16:22 15 mg ONCE ONE Administration Ondansetron HCl 4 mg 06/12/23 16:20 06/12/23 16:28 Ondansetron 4mg/2ml Vial IV 06/12/23 16:21 4 mg ONCE ONE Administration Medical Decision Narrative: 42-year-old female history of anxiety, tachycardia on bisoprolol presenting with multiple complaints. Patient states that she was drinking alcohol last night, 5/ and feels that she drank a little too much. Today, she woke up and has felt anxious, tachycardic, pressure-like headache. No nausea or vomiting, or any other complaints. States that she also feels a little shaky. She states she has not taken her bisoprolol in 2 or 3 days, but has been taking her medications for anxiety. History was obtained via conversation with patient and EMS. On arrival, patient hemodynamically stable, alert, oriented x4, appropriate, GCS 15, moving all extremities spontaneously, pupils equal and reactive to light. Full physical exam performed and significant for mildly tachycardic 100 to 105 bpm. Lungs are clear to auscultation, patient no acute distress. Alert and oriented, neurologically intact. Overall unremarkable physical exam. Differential includes alcohol withdrawal, medication withdrawal, dehydration, anxiety, among others. Patient was given fluids, Zofran, Toradol, 2.5 mg bisoprolol for symptomatic management and correction of underlying abnormalities. Independent interpretation of EKG shows sinus tachycardia 103 beats a minute. NM, QRS, QT intervals within normal limits. She does have nondiagnostic T wave inversions in septal and inferior leads. Patient was placed in observation beginning at 4:30 PM in order to give fluids, meds, reevaluate and determine need for admission versus home-going. The patient was provided bisoprolol, Toradol, Zofran, fluids, while awaiting results. On reevaluation, patient resting comfortably, no complaints. At this time, I feel patient is appropriate for admission/discharge. Total observation time 1 and half hours. Because patient at baseline without signs or symptoms of clinical decompensation, deemed appropriate for discharge. Results were relayed to patient who voiced understanding and were agreeable to outpatient management and follow up. I discussed my clinical impression with patient and answered all questions. At this time, the evidence for any other entities in the differential is insufficient to warrant any further testing or ED observation. This was explained as well. Advisory was given that persistent or worsening symptoms require further evaluation. I confirmed the understanding of this discussion. Critical Care Critical Care Time Critical Care Time: No
[2023-06-12] MEDS: BISOPROLOL 5MG TABLET 2.5 MG PO (16:56)
[2023-06-12 17:00] VITALS: BP 126/63; PULSE 97; RESP 18; O2SAT 100
--- NOTE | 2023-06-12 17:13 | PC.NURSE ---
WARM BLANKET PROVIDED
--- NOTE | 2023-06-12 17:35 | PC.NURSE ---
TOLERATING PO INTAKE WELL
[2023-06-12 18:07] VITALS: BP 117/73; PULSE 62; RESP 16; TEMP 36.5; O2SAT 99
== END 2023-06-12 18:27 | disposition home or self-care (01) ==
PROVIDERS: Emergency Provider Emergency Medicine; PCP Physician Assistant
DX: E86.0 Dehydration (principal); R00.0 Tachycardia, unspecified; F41.9 Anxiety disorder, unspecified; I10 Essential (primary) hypertension
CPT/HCPCS: 93005; 96361; 96374; 96375; 99284; J2405

== ENCOUNTER 2023-08-26 05:17 | Emergency (ER) | payer BC, SELFPAY ==
[2023-08-26] VITALS (7 sets, daily range): BP systolic 111–142; BP diastolic 53–81; PULSE 62–74; RESP 18–20; TEMP 36.8; O2SAT 98–100; BMI 32.9
--- NOTE | 2023-08-26 05:31 | PC.NURSE ---
Dr. Olmstead at bedside
--- NOTE | 2023-08-26 05:32 | ED_ITS ---
Discharge Plan Disposition Patient Disposition: Home, Self-Care Condition: Good Prescriptions Prescriptions: New sulfamethoxazole-trimethoprim 800-160 mg tablet 1 tab PO BID 5 Days Qty: 10 0RF No Action bisoprolol fumarate 10 mg tablet 5 mg PO DAILY Rx Instructions: Take 1/2 tablet daily. Bariatric Multivitamins 45 mg iron- 800 mcg-120 mcg capsule PO ascorbate calcium (vitamin C) 500 mg tablet 500 mg PO TID Chewable Iron 30-10-25 mg tablet,chewable 1 tab PO DAILY methylprednisolone 4 mg Tablets,Dose Pack 4 mg PO DIRECTED Qty: 21 0RF albuterol sulfate [Ventolin HFA] 90 mcg/actuation HFA aerosol inhaler 2 puff inhalation Q6H PRN (Reason: shortness of breath or wheezing) Qty: 6.7 0RF cefdinir 300 mg capsule 300 mg PO BID Qty: 20 0RF Referrals Follow up/Referrals: Ayla Guillen PA [Primary Care Provider] - See instructions Wilbert Marc MD [Staff Physician] - See instructions Activity Restrictions/Add. Instructions Additional Instructions/Restrictions: As we discussed, it appears on your labs and imaging that you have a bladder infection which is causing some blood in your urine. Please take the antibiotics as directed. Please return with any new or worsening symptoms. Clinical Impressions Clinical Impression: Acute hemorrhagic cystitis Instructions Patient Instructions: Urinary Tract Infection, DI for Urinary Tract Infection (UTI) Discharge ED Provider: Ahsan Riley General Adult HPI <Laura Olmstead DO - Last Filed: 08/26/23 06:50> General Chief complaint: Urogenital-Female Stated complaint: Blood in urine with burning,pain Time Seen by Provider: 08/26/23 05:22 History of Present Illness HPI narrative: This patient is a 43-year-old female with a history of prior total abdominal hysterectomy 6 years ago presenting to the emergency department for evaluation with concern for vaginal bleeding versus hematuria. She states that she is having bleeding from down there, but she is not sure exactly where it is coming from. She also notes significant dysuria and urinary frequency. She has had passage of clots. This all started this morning. She also notes pelvic pain and pressure. She states that she has been having intercourse every day with her , and it has been painful. She denies any fevers, nausea, vomiting, changes bowel movements, or other issues. She denies history of urinary tract infections in the past, but she states that this is much different, as she is having more bleeding as well as spotting of blood. She is not on anticoagulation. Related Data Home Medications Medication Instructions Recorded Confirmed ascorbate calcium (vitamin C) 500 500 mg PO TID 10/01/22 10/01/22 mg tablet bisoprolol fumarate 10 mg tablet 5 mg PO DAILY palpitations 10/01/22 12/27/22 iron,carbonyl 30 mg-vitamin C 10 1 tab PO DAILY 10/01/22 10/01/22 mg-FOS 25 mg chewable tablet (Chewable Iron) [id number] 45 mg-folic cap PO 10/01/22 10/01/22 acid 800 mcg-vit K 120 mcg capsule (Bariatric Multivitamins) Previous Rx's Medication Instructions Recorded albuterol sulfate 90 mcg/actuation 2 puff inhalation Q6H PRN 12/27/22 aerosol inhaler (Ventolin HFA) shortness of breath or wheezing #6.7 grams cefdinir 300 mg capsule 300 mg PO BID #20 caps 12/27/22 methylprednisolone 4 mg tablets in 4 mg PO DIRECTED #21 tabs 12/27/22 a dose pack sulfamethoxazole 800 1 tab PO BID 5 days #10 tabs 08/26/23 mg-trimethoprim 160 mg tablet Allergies Allergy/AdvReac Type Severity Reaction Status Date / Time Penicillins Allergy Severe NA-NAUSEA/VOMITING Verified 12/27/22 17:46 (SEVERE) [facility] <Laura Olmstead DO - Last Filed: 08/26/23 06:50> [facility] Disclaimer: The information contained in this section may have been updated after the patient was seen, as this information can be updated by other users. Medical History Left ankle pain Injury of foot, left Sinusitis Strep pharyngitis Vaginal discharge Upper respiratory infection Sinusitis Exposure to COVID-19 virus Viral syndrome Morbid obesity with body mass index (BMI) of 40.0 to 49.9 Edema of both lower extremities Callus of foot Metatarsalgia of both feet Foot pain Palpitations Chest pain, atypical Migraine variant Pharyngitis Headache Diarrhea Surgical History H/O gastric sleeve Family History Grandfather Heart attack, Onset Age: 30 Stroke, Onset Age: 70 Cancer Sister Epilepsy Substance abuse Bipolar 1 disorder Father Hyperlipidemia Hypertension Stroke, Onset Age: 60 Mother Hyperlipidemia Hypertension Social History Smoking Status: Never smoker years smoked: 4 how long ago did patient quit smokin years ago alcohol intake: former substance use type: denies use and marijuana current occupational status: employed and other Travel in the last 8 weeks: None number of children: 4 <Laura Olmstead DO - Last Filed: 08/26/23 06:50> ROS Obtained: Yes All systems reviewed & no additional complaints except as documented Physical Exam <DO Marciano Lord Last Filed: 08/26/23 06:50> General General appearance: alert and in no apparent distress Head Head exam: atraumatic and normocephalic Eye Eye exam: Present normal appearance, PERRL and EOMI ENT ENT exam: Present normal exam, normal oropharynx, mucous membranes moist and normal external ear exam Neck Neck exam: Present normal inspection, full ROM and trachea midline; Absent tenderness Chest Chest inspection: Present normal inspection and symmetric chest wall rise; Absent tenderness Respiratory Respiratory exam: Present normal lung sounds bilaterally; Absent respiratory distress, wheezes, stridor or accessory muscle use Cardiovascular Cardiovascular exam: Present regular rate and normal rhythm Abdominal Exam Abdominal exam: Present soft and tenderness (Suprapubic); Absent distention or guarding External exam: Present tenderness; Absent lacerations Speculum exam: Present erythema and other (Patient has minor vaginal irritation with tenderness to palpation. No large lacerations. No vaginal bleeding that is noted. No pooling in the vaginal vault.); Absent vaginal discharge, cervical discharge, vaginal bleeding, foreign body, tissue or laceration Extremities Exam Extremities exam: Present normal inspection, full ROM and normal capillary refill; Absent tenderness or edema Back Exam Back exam: Present normal inspection and full ROM; Absent tenderness Neurological Exam Neurological exam: Present alert, oriented X3, CN II-XII intact and normal gait; Absent motor sensory deficit Psychiatric Psychiatric exam: Present normal affect and normal mood Skin Skin exam: Present warm and dry Medical Decision Making <DO Marciano Lord Last Filed: 08/26/23 06:50> Medical Records Medical records reviewed: Yes I reviewed the patient's medical records. Parveen Inquiry Pt receiving controlled substance: No Vital Signs: 08/26/23 05:18 08/26/23 06:30 08/26/23 07:00 Temperature 98.3 F Temperature Source Oral Pulse Rate 62 63 Pulse Rate [Right] 74 Respiratory Rate 18 Blood Pressure 120/53 L 111/65 Blood Pressure [Right Arm] 142/81 H Blood Pressure Mean [Right Arm] 101 Blood Pressure Source Blood Pressure Source [Right Arm] Automatic Cuff Blood Pressure Position 02 Sat by Pulse Oximetry 99 100 100 Oxygen Delivery Method Room Air Room Air Room Air 08/26/23 07:01 08/26/23 07:30 08/26/23 08:00 Temperature Temperature Source Pulse Rate 64 69 63 Pulse Rate [Right] Respiratory Rate 20 Blood Pressure 120/53 L 129/73 130/59 L Blood Pressure [Right Arm] Blood Pressure Mean [Right Arm] Blood Pressure Source Automatic Cuff Blood Pressure Source [Right Arm] Blood Pressure Position Sitting 02 Sat by Pulse Oximetry 100 98 99 Oxygen Delivery Method Room Air Room Air Room Air 08/26/23 09:24 Temperature 98.3 F Temperature Source Oral Pulse Rate 63 Pulse Rate [Right] Respiratory Rate 18 Blood Pressure 116/71 Blood Pressure [Right Arm] Blood Pressure Mean [Right Arm] Blood Pressure Source Automatic Cuff Blood Pressure Source [Right Arm] Blood Pressure Position Sitting 02 Sat by Pulse Oximetry Oxygen Delivery Method Room Air Lab Data Lab results reviewed: Yes I reviewed the patient's lab results. Lab Results 08/26/23 05:20: Urine Color Red, Urine Appearance Turbid, Urine pH 8.5, Ur Specific Louise 1.015, Urine Protein 3+, Urine Glucose (UA) Trace, Urine Ketones 2+, Urine Blood 3+, Urine Nitrate Positive, Urine Bilirubin Negative, Urine Urobilinogen >=8.0, Ur Leukocyte Esterase 2+ A, Urine RBC Tntc, Urine WBC 10-20, Urine Bacteria 2+, Urine HCG, Qual Negative 08/26/23 06:05: WBC 11.6 H, RBC 4.02 L, Hgb 12.4, Hct 37.7, MCV 93.6, MCH 30.9, MCHC 33.0, RDW 13.3, Plt Count 264, MPV 8.5, Neut % (Auto) 62.2, Lymph % (Auto) 28.3, Sen[place] % (Auto) 5.1, Eos % (Auto) 2.9, Baso % (Auto) 1.4, Neut # (Auto) 7.2, Lymph # (Auto) 3.3, Sen[place] # (Auto) 0.6, Eos # (Auto) 0.3, Baso # (Auto) 0.2, PT 10.5, INR 0.93, APTT 27.5, Sodium 136, Potassium 3.7, Chloride 107, Carbon Dioxide 26, Anion Gap 6.7, BUN 16, Creatinine 0.70, Estimated Creat Clear 136, Estimated GFR 92, Est GFR ( Amer) 112, Glucose 79, Calcium 8.9, Total Bilirubin 0.2, AST 35, ALT 21, Alkaline Phosphatase 49, Total Protein 7.2, Albumin 4.1, Globulin 3.1, Albumin/Globulin Ratio 1.3 08/26/23 06:05 08/26/23 06:05 Orders (Tests/Meds): ED MEDICATIONS Discontinued Medications Generic Name Dose Route Start Last Admin Trade Name Freq PRN Reason Stop Dose Admin Acetaminophen 1,000 mg 08/26/23 05:54 08/26/23 06:11 Acetaminophen 1,000mg/100ml Vial IV 08/26/23 05:55 1,000 mg ONCE ONE Administration Lactated Ringer's 1,000 mls @ 999 mls/hr 08/26/23 05:54 08/26/23 06:10 Lactated Ringer's 1000 Ml Bag IV 08/26/23 06:54 999 mls/hr .Q1H1M ONE Administration Iopamidol 100 ml 08/26/23 06:55 08/26/23 06:56 Iopamidol-370 (76%);100ml Bottle IV 08/26/23 06:56 100 ml ONCE ONE Administration Ketorolac Tromethamine 15 mg 08/26/23 05:54 08/26/23 06:10 Ketorolac 30mg/Ml Vial IV 08/26/23 05:55 15 mg ONCE ONE Administration Sodium Chloride 50 ml 08/26/23 06:55 08/26/23 06:56 0.9 % Sodium Chloride 50 Ml Vial IV 08/26/23 06:56 50 ml ONCE ONE Administration Sodium Chloride 10 ml 08/26/23 06:55 08/26/23 06:56 Sodium Chloride 0.9% 10ml Syr (Rad Only) IV 08/26/23 06:56 10 ml ONCE ONE Administration ORDERS Category Date Time Status CT angio abdomen pelvis Stat Cat Scan 08/26/23 05:54 Completed Activated Partial Thrombo Time Stat Lab 08/26/23 06:05 Completed CBC w/Auto Diff [Complete Blood Count Auto Diff] Stat Lab 08/26/23 06:05 Completed CMP [Comprehensive Metabolic Panel] Stat Lab 08/26/23 06:05 Completed Prothrombin Time INR Stat Lab 08/26/23 06:05 Completed UA [Urinalysis and Microscopic] Stat Lab 08/26/23 05:20 Completed Urine , HCG Qual. Stat Lab 08/26/23 05:20 Completed Urine Culture Stat Micro 08/26/23 05:31 Results Medical Decision Narrative: In summary, this patient is a 43-year-old female presenting to the Emergency Department for evaluation of vaginal bleeding versus hematuria, dysuria, and pelvic pain. Differential diagnoses considered include but are not limited to cervical laceration, vaginal laceration, hemorrhagic cystitis, urethral injury. Ruling out the most morbid conditions drove assessment. On exam, the patient is well-appearing. She is sitting upright in bed in no acute distress. Urine is grossly bloody, but patient is not sure if she is having vaginal bleeding versus sirena hematuria. Workup included urinalysis and urine culture. Pelvic exam was performed with a piece hand after informed consent obtained. Pelvic exam demonstrated minor vaginal irritation with associated tenderness to palpation, however patient has no blood in the vaginal canal, no blood pooling in the vaginal vault, no obvious lacerations. Given this, concerned that all of the blood is urethral in nature. To evaluate further, CBC, CMP, PT, PTT, and CT angiogram of the abdomen and pelvis were ordered. Was given a bolus of IV fluids as well as IV Toradol and acetaminophen for symptomatic improvement. Labs demonstrated mild leukocytosis. Urine is difficult to assess given sirena hematuria, but it is positive for nitrates and leukocyte esterase. Kidney function, platelet counts, hemoglobin, and coags all normal. Patient care was signed out to the oncoming provider, Dr. Riley, pending CT. <Ahsan Riley MD - Last Filed: 08/27/23 13:01> Vital Signs: 08/26/23 05:18 08/26/23 06:30 08/26/23 07:00 Temperature 98.3 F Temperature Source Oral Pulse Rate 62 63 Pulse Rate [Right] 74 Respiratory Rate 18 Blood Pressure 120/53 L 111/65 Blood Pressure [Right Arm] 142/81 H Blood Pressure Mean [Right Arm] 101 Blood Pressure Source Blood Pressure Source [Right Arm] Automatic Cuff Blood Pressure Position 02 Sat by Pulse Oximetry 99 100 100 Oxygen Delivery Method Room Air Room Air Room Air 08/26/23 07:01 08/26/23 07:30 08/26/23 08:00 Temperature Temperature Source Pulse Rate 64 69 63 Pulse Rate [Right] Respiratory Rate 20 Blood Pressure 120/53 L 129/73 130/59 L Blood Pressure [Right Arm] Blood Pressure Mean [Right Arm] Blood Pressure Source Automatic Cuff Blood Pressure Source [Right Arm] Blood Pressure Position Sitting 02 Sat by Pulse Oximetry 100 98 99 Oxygen Delivery Method Room Air Room Air Room Air 08/26/23 09:24 Temperature 98.3 F Temperature Source Oral Pulse Rate 63 Pulse Rate [Right] Respiratory Rate 18 Blood Pressure 116/71 Blood Pressure [Right Arm] Blood Pressure Mean [Right Arm] Blood Pressure Source Automatic Cuff Blood Pressure Source [Right Arm] Blood Pressure Position Sitting 02 Sat by Pulse Oximetry Oxygen Delivery Method Room Air Lab Data Lab Results 08/26/23 05:20: Urine Color Red, Urine Appearance Turbid, Urine pH 8.5, Ur Specific Louise 1.015, Urine Protein 3+, Urine Glucose (UA) Trace, Urine Ketones 2+, Urine Blood 3+, Urine Nitrate Positive, Urine Bilirubin Negative, Urine Urobilinogen >=8.0, Ur Leukocyte Esterase 2+ A, Urine RBC Tntc, Urine WBC 10-20, Urine Bacteria 2+, Urine HCG, Qual Negative 08/26/23 06:05: WBC 11.6 H, RBC 4.02 L, Hgb 12.4, Hct 37.7, MCV 93.6, MCH 30.9, MCHC 33.0, RDW 13.3, Plt Count 264, MPV 8.5, Neut % (Auto) 62.2, Lymph % (Auto) 28.3, [place] % (Auto) 5.1, Eos % (Auto) 2.9, Baso % (Auto) 1.4, Neut # (Auto) 7.2, Lymph # (Auto) 3.3, [place] # (Auto) 0.6, Eos # (Auto) 0.3, Baso # (Auto) 0.2, PT 10.5, INR 0.93, APTT 27.5, Sodium 136, Potassium 3.7, Chloride 107, Carbon Dioxide 26, Anion Gap 6.7, BUN 16, Creatinine 0.70, Estimated Creat Clear 136, Estimated GFR 92, Est GFR ( Amer) 112, Glucose 79, Calcium 8.9, Total Bilirubin 0.2, AST 35, ALT 21, Alkaline Phosphatase 49, Total Protein 7.2, Albumin 4.1, Globulin 3.1, Albumin/Globulin Ratio 1.3 Orders (Tests/Meds): ED MEDICATIONS Discontinued Medications Generic Name Dose Route Start Last Admin Trade Name Freq PRN Reason Stop Dose Admin Acetaminophen 1,000 mg 08/26/23 05:54 08/26/23 06:11 Acetaminophen 1,000mg/100ml Vial IV 08/26/23 05:55 1,000 mg ONCE ONE Administration Lactated Ringer's 1,000 mls @ 999 mls/hr 08/26/23 05:54 08/26/23 06:10 Lactated Ringer's 1000 Ml Bag IV 08/26/23 06:54 999 mls/hr .Q1H1M ONE Administration Iopamidol 100 ml 08/26/23 06:55 08/26/23 06:56 Iopamidol-370 (76%);100ml Bottle IV 08/26/23 06:56 100 ml ONCE ONE Administration Ketorolac Tromethamine 15 mg 08/26/23 05:54 08/26/23 06:10 Ketorolac 30mg/Ml Vial IV 08/26/23 05:55 15 mg ONCE ONE Administration Sodium Chloride 50 ml 08/26/23 06:55 08/26/23 06:56 0.9 % Sodium Chloride 50 Ml Vial IV 08/26/23 06:56 50 ml ONCE ONE Administration Sodium Chloride 10 ml 08/26/23 06:55 08/26/23 06:56 Sodium Chloride 0.9% 10ml Syr (Rad Only) IV 08/26/23 06:56 10 ml ONCE ONE Administration ORDERS Category Date Time Status CT angio abdomen pelvis Stat Cat Scan 08/26/23 05:54 Completed Activated Partial Thrombo Time Stat Lab 08/26/23 06:05 Completed CBC w/Auto Diff [Complete Blood Count Auto Diff] Stat Lab 08/26/23 06:05 Completed CMP [Comprehensive Metabolic Panel] Stat Lab 08/26/23 06:05 Completed Prothrombin Time INR Stat Lab 08/26/23 06:05 Completed UA [Urinalysis and Microscopic] Stat Lab 08/26/23 05:20 Completed Urine , HCG Qual. Stat Lab 08/26/23 05:20 Completed Urine Culture Stat Micro 08/26/23 05:31 Results Medical Decision Narrative: In summary, this patient is a 43-year-old female presenting to the Emergency Department for evaluation of vaginal bleeding versus hematuria, dysuria, and pelvic pain. Differential diagnoses considered include but are not limited to cervical laceration, vaginal laceration, hemorrhagic cystitis, urethral injury. Ruling out the most morbid conditions drove assessment. On exam, the patient is well-appearing. She is sitting upright in bed in no acute distress. Urine is grossly bloody, but patient is not sure if she is having vaginal bleeding versus sirena hematuria. Workup included urinalysis and urine culture. Pelvic exam was performed with a piece hand after informed consent obtained. Pelvic exam demonstrated minor vaginal irritation with associated tenderness to palpation, however patient has no blood in the vaginal canal, no blood pooling in the vaginal vault, no obvious lacerations. Given this, concerned that all of the blood is urethral in nature. To evaluate further, CBC, CMP, PT, PTT, and CT angiogram of the abdomen and pelvis were ordered. Was given a bolus of IV fluids as well as IV Toradol and acetaminophen for symptomatic improvement. Labs demonstrated mild leukocytosis. Urine is difficult to assess given sirena hematuria, but it is positive for nitrates and leukocyte esterase. Kidney function, platelet counts, hemoglobin, and coags all normal. Patient care was signed out to the oncoming provider, Dr. Riley, pending CT. Ahsan Riley MD: I assumed care of this patient from the previous emergency medicine physician. Patient reports improvement of pain upon repeat evaluation. CT imaging visualized and interpreted by me significant for no acute surgical pathology or evidence of hemorrhage. She is stable for discharge at this time with outpatient followup. She was provided a course of by mouth antibiotics. Return precautions given. Critical Care <Laura Olmstead, DO - Last Filed: 08/26/23 06:50> Critical Care Time Critical Care Time: No
[2023-08-26 05:33] LABS: Appearance,Urine TURBID (Clear); Blood, Urine 3+ (Negative); Color,Urine RED (Yellow); Glucose,Urine (UA) TRACE (Negative); Ketones,Urine 2+ (Negative); Leukocyte Esterase,Urine 2+ (Negative); Microscopic, Urine URINE MICROSCOPIC (MICROSCOPIC); Nitrate,Urine POSITIVE (Negative); PH,Urine 8.5 (5.0-8.5); Protein,Urine 3+ (Negative); Specific Gravity, Urine 1.015 (1.005-1.030); Urobilinogen,Urine >=8.0 EU/dl (0.2)
[2023-08-26 05:38] LABS: Bilirubin,Urine Negative (Negative); Urine Pregnancy, HCG Qual. Negative (Negative)
[2023-08-26 05:45] LABS: Bacteria,Urine 2+ /lpf; RBC,Urine TNTC #/hpf (0-3)
--- NOTE | 2023-08-26 05:54 | CT_ITS ---
FINAL REPORT TECHNIQUE: Pre-and postcontrast images of the abdomen and pelvis were performed by computed tomography. Extensive 3-D reconstruction images were performed. A CTA was performed. This study was performed with techniques to keep radiation doses as low as reasonably achievable (ALARA). Individualized dose reduction techniques using automated exposure control or adjustment of mA and/or kV according to the patient's size were employed. CLINICAL HISTORY: bladder hemorrhage COMPARISON: None FINDINGS: ABDOMEN AND PELVIS: The lung bases are clear. Precontrast images demonstrate no evidence of nephrolithiasis. No adrenal masses are identified. The liver, spleen and pancreas are unremarkable. The gallbladder is absent. No gastrointestinal abnormality is identified. There is wall thickening of the bladder, cystitis not excluded. The uterus is absent. No retroperitoneal or pelvic hemorrhages identified. CTA: The abdominal aorta is proper caliber. The SMA, celiac axis, and JOELLE are patent. There is no significant stenosis or calcification. The renal arteries are patent bilaterally. No evidence of extravasation of contrast is seen. There is a small amount of peripheral enhancement in the ovaries bilaterally, likely secondary to enhancing functional ovarian cysts. IMPRESSION: Wall thickening of the bladder is present, cystitis not excluded. No evidence of retroperitoneal or pelvic hemorrhage is identified. Reviewed, Interpreted and Dictated by Sarah Stewart MD Transcribed by Kayla Groves Authenticated and [facility]
[2023-08-26] MEDS: KETOROLAC 30MG/ML VIAL 15 MG IV (06:10)
[2023-08-26] MEDS: LACTATED RINGERS 1000ML 1,000 ML 999 ML IV (06:10)
[2023-08-26] MEDS: ACETAMINOPHEN 1,000MG/100ML VIAL 1000 MG IV (06:11)
--- NOTE | 2023-08-26 06:12 | PC.NURSE ---
0545: Dr. Olmstead at bedside and pelvic exam completed. Pt. tolerated with some discomfort.
[2023-08-26 06:16] LABS: Basophils # 0.2 K/mm3 (0-0.2); Basophils % 1.4 % (0.1-2.0); Eosinophils # 0.3 K/mm3 (0.0-0.4); Eosinophils % 2.9 % (0.1-12.0); Hematocrit 37.7 % (37.0-47.0); Hemoglobin 12.4 g/dL (12.2-16.2); Lymphocytes # 3.3 K/mm3 (0.7-4.5); Lymphocytes % 28.3 % (10-50); Mean Corpuscular Hemoglobin 30.9 pg (27.0-31.2); Mean Corpuscular Volume 93.6 fl (81-99); Mean Platelet Volume 8.5 fl (7.4-10.4); Monocytes # 0.6 K/mm3 (0.1-1.0); Monocytes % 5.1 % (1.7-9.3); Neutrophils # 7.2 K/mm3 (1.8-7.8); Neutrophils % 62.2 % (37.0-80.0); Platelet Count 264 K/mm3 (142-424); Red Blood Count 4.02 M/mm3 (4.20-5.40); Red Cell Distribution Width 13.3 % (11.5-17.5); White Blood Count 11.6 K/mm3 (4.8-10.8)
[2023-08-26 06:25] LABS: Alanine Aminotransferase 21 U/L (12-78); Albumin Level 4.1 g/dl (3.5-5.0); Albumin/Globulin Ratio 1.3 (1.1-1.8); Alkaline Phosphatase 49 U/L (38-126); Aspartate Amino Transferase 35 U/L (14-36); Bilirubin,Total 0.2 mg/dl (0.2-1.3); Blood Urea Nitrogen 16 mg/dl (7-17); Calcium 8.9 mg/dl (8.4-10.2); Carbon Dioxide 26 mmol/L (22.0-30.0); Creatinine Clearance Estimated 136 mL/min (50-200); Estimated Glomerular Filt Rate 92 ml/min (>60); GFR (African American) 112 ML/MIN (>60); Globulin 3.1 g/dL (1.3-3.2); Glucose 79 mg/dl (74-100); Potassium 3.7 mmoL/L (3.5-5.1); Sodium 136 mmol/L (136-145); Total Protein,Serum 7.2 g/dl (6.3-8.2)
[2023-08-26 06:27] LABS: Activated Partial Thrombo Time 27.5 seconds (22.8-30.6); Anion Gap 6.7 mEq/L (5-15); Chloride 107 mmol/L (98-107); INR 0.93 (0.9-1.1); Prothrombin Time 10.5 seconds (10.1-12.5)
[2023-08-26] MEDS: SODIUM CHLORIDE 0.9% 10ML SYR (RAD ONLY) 10 ML IV (06:56)
[2023-08-26] MEDS: 0.9 % SODIUM CHLORIDE 50 ML VIAL IV (06:56)
[2023-08-26] MEDS: IOPAMIDOL-370 (76%);100ML BOTTLE 100 ML IV (06:56)
--- NOTE | 2023-08-26 07:50 | PC.NURSE ---
DR KING AT BEDSIDE, PT ASSISTED TO BR
--- NOTE | 2023-08-26 07:57 | PC.NURSE ---
PT RETURNED FROM BATHROOM, NO NEEDS AT THIS TIME. CALL LIGHT WITHIN REACH
--- NOTE | 2023-08-26 08:56 | PC.NURSE ---
SPOKE WITH HEYDI IN RADIOLOGY TO CHECK CT READ
--- NOTE | 2023-08-26 09:17 | PC.NURSE ---
DR KING AT BEDSIDE TO REEVALUATE PT
== END 2023-08-26 09:29 | disposition home or self-care (01) ==
PROVIDERS: Emergency Medicine; Emergency Provider Emergency Medicine; PCP Physician Assistant
DX: N30.01 Acute cystitis with hematuria (principal); B96.29 Other Escherichia coli [E. coli] as the cause of diseases classified elsewhere; R10.2 Pelvic and perineal pain; R30.0 Dysuria; R35.0 Frequency of micturition
CPT/HCPCS: 74174; 80053; 81001; 81025; 85025; 85610; 85730; 87086; 87088; 87186; 96361; 96374; 96375; 99285; J0131; J1885; J7120; Q9967

== ENCOUNTER 2024-05-15 10:57 | Emergency (ER) | payer SELFPAY ==
--- NOTE | 2024-05-15 11:26 | PC.NURSE ---
[facility]
[2024-05-15 11:27] VITALS: BP 134/82; PULSE 75; RESP 18; TEMP 36.8; O2SAT 98; BMI 41.1
[2024-05-15 11:27] LABS: Coronavirus 19, PCR Not Detected (NotDetected); Influenza B, PCR Not Detected (NotDetected)
--- NOTE | 2024-05-15 11:47 | PC.NURSE ---
care handoff report received from Eitan Farah RN
[2024-05-15 11:49] LABS: Influenza A, PCR Detected (NotDetected)
[2024-05-15] MEDS: LACTATED RINGERS 1000ML 1,000 ML 999 ML IV (12:05)
[2024-05-15] MEDS: KETOROLAC 30MG/ML VIAL 15 MG IV (12:06)
[2024-05-15] MEDS: DEXAMETHASONE 4MG/ML 1ML VIAL 10 MG IV (12:06)
[2024-05-15] MEDS: METOCLOPRAMIDE HCL 10MG/2ML VIAL 10 MG IVP (12:06)
[2024-05-15] MEDS: diphenhydrAMINE 50MG/ML VIAL 50 MG IV (12:06)
[2024-05-15] MEDS: ACETAMINOPHEN 1,000MG/100ML VIAL 1000 MG IV (12:07)
[2024-05-15 12:43] VITALS: BP 150/79; PULSE 74; RESP 18; TEMP 36.8; O2SAT 98
--- NOTE | 2024-05-15 13:38 | ED_ITS ---
Discharge Plan Disposition Patient Disposition: Home, Self-Care Condition: Good Prescriptions Prescriptions: New ondansetron 4 mg tablet,disintegrating 4 mg PO Q8H PRN (Reason: nausea and vomiting) 4 Days Qty: 12 0RF [id number]-[id number] [Bromfed DM] 2-30-10 mg/5 mL syrup 5 ml PO Q6H PRN (Reason: cold symptoms) Qty: 118 0RF No Action prednisone 20 mg tablet 20 mg PO BID Qty: 10 0RF Rx Instructions: administer with food or milk Referrals Follow up/Referrals: Ayla Guillen PA [Primary Care Provider] - See instructions Activity Restrictions/Add. Instructions Additional Instructions/Restrictions: You were evaluated in the emergency department today. Please rock picker your prescriptions and take as needed for symptoms. Take Tylenol and ibuprofen as needed for pain. Make sure you stay hydrated. Follow-up closely with primary care. Return to the emergency department for new or worsening symptoms. Clinical Impressions Clinical Impression: Influenza A Stand Alone Forms Stand Alone Forms: Work/School Release Instructions Patient Instructions: DI for Influenza -- Adult Print Language Print Language: Upper Sorbian Discharge ED Provider: Laura Olmstead General Adult HPI General Chief complaint: Upper Respiratory Infection Stated complaint: Fever, chills/sweats, headache, disor. Time Seen by Provider: 05/15/24 11:43 Mode of Arrival: Ambulatory Source of Information: Patient Description of Symptoms (Recalled from ER Triage Doc. by RN): pt c/o fever, chills, sweats, and a severe headache that started 05/13/24. pt reports that she has also been having diarrhea. pt reports the headache is constant and nothing has provided relieve. History of Present Illness HPI narrative: This patient is a 43-year-old female with a history of prior hysterectomy, prior gastric sleeve presenting to the emergency department for evaluation concern for fever, chills, headaches, body ache, congestion, cough, diarrhea. Patient is a has been sick since Wednesday. She states her son at home has also been sick. Her biggest concern is her headache that has been intractable despite NyQuil and ibuprofen. No vision changes, numbness, tingling, unilateral weakness or other neurologic symptoms. Related Data Previous Rx's ?Medication ?Instructions ?Recorded prednisone 20 mg tablet 20 mg PO BID #10 tabs 03/22/24 fimietvduforyvq-hravapmosdbbvrk-SN 5 ml PO Q6H PRN cold symptoms #118 05/15/24 2 mg-30 mg-10 mg/5 mL oral syrup mL (Bromfed DM) ondansetron 4 mg disintegrating 4 mg PO Q8H PRN nausea and 05/15/24 tablet vomiting 4 days #12 tabs Allergies Allergy/AdvReac Type Severity Reaction Status Date / Time Penicillins Allergy Severe NA-NAUSEA/VOMITING Verified 03/22/24 17:25 (SEVERE) [facility] Disclaimer: The information contained in this section may have been updated after the patient was seen, as this information can be updated by other users. Medical History (Reviewed 03/22/24 @ 17:54 by Mckenzie Mallory ([facility]), REFRIGERATION REPAIR SUPERVISOR) Left ankle pain Injury of foot, left Sinusitis Strep pharyngitis Vaginal discharge Upper respiratory infection Sinusitis Exposure to COVID-19 virus Viral syndrome Morbid obesity with body mass index (BMI) of 40.0 to 49.9 Edema of both lower extremities Callus of foot Metatarsalgia of both feet Foot pain Palpitations Chest pain, atypical Migraine variant Pharyngitis Headache Diarrhea Surgical History (Reviewed 03/22/24 @ 17:54 by Mckenzie Mallory ([facility]), REFRIGERATION REPAIR SUPERVISOR) History of hysterectomy H/O gastric sleeve Sep 2021 Family History (Reviewed 03/22/24 @ 17:54 by Mckenzie Mallory ([facility]), REFRIGERATION REPAIR SUPERVISOR) Grandfather, age 83 Epilepsy Sister Substance abuse Sister drug abuse Hyperlipidemia Father Mother Heart attack Grandfather, Onset Age: 30 Bipolar 1 disorder Sister Cancer Grandfather stomach and esophageal Hypertension Father Mother Stroke Grandfather, Onset Age: 70 Father, Onset Age: 60 r/t small brain stem Social History (Reviewed 03/22/24 @ 17:54 by Mckenzie Mallory ([facility]), REFRIGERATION REPAIR SUPERVISOR) Smoking Status: Never smoker years smoked: 4 how long ago did patient quit smokin years ago alcohol intake: former substance use type: denies use and marijuana current occupational status: employed and other Travel in the last 8 weeks: None number of children: 4 Have you lived/traveled outside [place] in past 30 days?: No Contact w/someone who lives/traveled outside [place] past 30 days?: No Exposure to someone with infectious disease in past 14 days?: No Do you have a fever (greater than 100.4 F or 38 C)?: Yes Have you tested positive for COVID-19: No Exposed to someone with COVID-19 in past 14 days?: No Do you have a sore throat?: No Do you have a cough?: No Do you have any weakness?: No Do you have any diarrhea?: No Are you experiencing any unusual bleeding?: No Do you have any muscle aches/pain?: No Do you have any abdominal pain?: No Are you experiencing loss of taste or smell?: No Other Medical History Have you received the Flu Vaccine for this season: No Have you received the Pneumonia Vaccine: No ROS Obtained: Yes All systems reviewed & no additional complaints except as documented Physical Exam General General appearance: alert and in no apparent distress Head Head exam: atraumatic and normocephalic Eye Eye exam: Present normal appearance, PERRL and EOMI ENT ENT exam: Present normal exam, normal oropharynx, mucous membranes moist and normal external ear exam Neck Neck exam: Present normal inspection, full ROM and trachea midline; Absent tenderness Chest Chest inspection: Present normal inspection and symmetric chest wall rise; Absent tenderness Respiratory Respiratory exam: Present normal lung sounds bilaterally; Absent respiratory distress, wheezes, stridor or accessory muscle use Cardiovascular Cardiovascular exam: Present regular rate and normal rhythm Abdominal Exam Abdominal exam: Present soft; Absent distention, tenderness or guarding Extremities Exam Extremities exam: Present normal inspection, full ROM and normal capillary refill; Absent tenderness or edema Back Exam Back exam: Present normal inspection and full ROM; Absent tenderness Neurological Exam Neurological exam: Present alert, oriented X3, CN II-XII intact and normal gait; Absent motor sensory deficit Psychiatric Psychiatric exam: Present normal affect and normal mood Skin Skin exam: Present warm and dry Medical Decision Making Medical Records Medical records reviewed: Yes I reviewed the patient's medical records. Screening: Per USPSTF and CDC recommendations, given the prevalence of disease in our region, it is our hospital?s policy to screen for HIV and viral Hepatitis for all patients aged 18 and over and those with ongoing risk factors. Parveen Inquiry Pt receiving controlled substance: No Vital Signs: 05/15/24 11:27 05/15/24 12:43 Temperature 98.2 F 98.3 F Temperature Source Oral Oral Pulse Rate 74 Pulse Rate [Right] 75 Respiratory Rate 18 18 Blood Pressure 150/79 H Blood Pressure [Right Arm] 134/82 Blood Pressure Mean [Right Arm] 99 Blood Pressure Source Automatic Cuff Blood Pressure Source [Right Arm] Automatic Cuff Blood Pressure Position Sitting Blood Pressure Position [Right Arm] Supine 02 Sat by Pulse Oximetry 98 Oxygen Delivery Method Room Air Room Air Lab Data Lab results reviewed: Yes I reviewed the patient's lab results. Lab Results 05/15/24 11:21: SARS-CoV-2 (PCR) Not detected, Influenza A Untype (PCR) Detected A, Influenza Type B (PCR) Not detected Orders (Tests/Meds): ED MEDICATIONS Discontinued Medications Generic Name Dose Route Start Last Admin Trade Name Freq PRN Reason Stop Dose Admin Acetaminophen 1,000 mg 05/15/24 11:43 05/15/24 12:07 Acetaminophen 1,000mg/100ml Vial IV 05/15/24 11:44 1,000 mg ONCE ONE Administration Dexamethasone Sodium Phosphate 10 mg 05/15/24 11:44 05/15/24 12:06 Dexamethasone 4mg/Ml 1ml Vial IV 05/15/24 11:45 10 mg ONCE ONE Administration Diphenhydramine HCl 50 mg 05/15/24 11:43 05/15/24 12:06 Diphenhydramine 50mg/Ml Vial IV 05/15/24 11:44 50 mg ONCE ONE Administration Lactated Ringer's 1,000 mls @ 999 mls/hr 05/15/24 11:43 05/15/24 12:05 Lactated Ringer's 1000 Ml Bag IV 05/15/24 12:43 999 mls/hr .Q1H1M ONE Administration Ketorolac Tromethamine 15 mg 05/15/24 11:43 05/15/24 12:06 Ketorolac 30mg/Ml Vial IV 05/15/24 11:44 15 mg ONCE ONE Administration Metoclopramide HCl 10 mg 05/15/24 11:43 05/15/24 12:06 Metoclopramide Hcl 10mg/2ml Vial IVP 05/15/24 11:44 10 mg ONCE ONE Administration ORDERS Category Date Time Status Rapid PCR Covid and Flu A/B Stat Lab 05/15/24 11:21 Completed Medical Decision Narrative: In summary, this patient is a 43-year-old presenting to the Emergency Department for evaluation of headache, fever, chills, body aches, congestion, cough, diarrhea. Son at home has also been sick differential diagnoses considered include but are not limited to viral migraine, tension headache syndrome, pneumonia, sinusitis,. Ruling out the most morbid conditions drove assessment. On exam, the patient is very well-appearing. She is alert, neurologically intact, no focal deficits. She has no meningismus. I feel she likely has a viral syndrome based on constellation of symptoms and the fact that her child at home is also been sick. Viral swab was sent and is positive for influenza. Patient was given a migraine cocktail of a bolus of IV fluids, IV acetaminophen, Reglan, Benadryl, dexamethasone, Toradol. She is feeling better afterward and remains neurologically intact, so I feel that she is appropriate for discharge home with instructions for supportive management of flu. Strict return precautions were given and the patient was discharged after all questions were answered. Critical Care Critical Care Time Critical Care Time: No
== END 2024-05-15 12:43 | disposition home or self-care (01) ==
PROVIDERS: Emergency Provider Emergency Medicine; PCP Physician Assistant
DX: J10.1 Influenza due to other identified influenza virus with other respiratory manifestations (principal); R50.9 Fever, unspecified; R51.9 Headache, unspecified; R19.7 Diarrhea, unspecified; M79.10 Myalgia, unspecified site; R05.9 Cough, unspecified; R09.81 Nasal congestion; Z20.828 Contact with and (suspected) exposure to other viral communicable diseases
CPT/HCPCS: 87636; 96361; 96374; 96375; 99283; J0131; J1100; J1200; J1885; J2765; J7120